=== PATIENT | female | born 1940 | race Hispanic/Latino ===

== ENCOUNTER 2017-12-25 11:33 | Inpatient (IN) | payer MEDICARE ==
[2017-12-25 13:27] LABS: BASO % 0.9 % (0.0-2.0); EOS # 0.2 K/uL (0.0-0.7); EOS % 3.6 % (0.0-4.0); HEMOGLOBIN 11.4 g/dL (12.0-16.0); LYMPH % 24.1 % (20.0-40.0); MEAN CELL VOLUME 89.3 fl (81.0-99.0); MEAN CORPUSCULAR HEMOGLOBIN 29.7 pg (27.0-31.0); MEAN CORPUSCULAR HGB CONC 33.3 g/dL (33.0-37.0); MEAN PLATELET VOLUME 7.2 fl (7.2-11.7); MONO # 0.4 K/uL (0.0-0.8); MONO % 9.1 % (0.0-10.0); NEUT # 2.6 K/uL (1.8-7.0); NEUT % 62.3 % (50.0-75.0); NRBC % 0.1 % (0.0-0.0); RBC 3.82 Mil/uL (3.80-5.20); RED CELL DISTRIBUTION WIDTH 14.2 % (11.5-14.5); WHITE BLOOD COUNT 4.2 K/uL (4.8-10.8)
[2017-12-25 13:28] LABS: VENOUS BLOOD GAS BASE EXCESS 1.4 mmol/L (0.0-2.0); VENOUS BLOOD GAS PCO2 63 mmHg (40-60); VENOUS BLOOD GAS PO2 25 mm/Hg (30-55); VENOUS BLOOD PH 7.28 (7.32-7.43)
[2017-12-25 13:34] LABS: INR 1.1; PROTHROMBIN TIME 12.1 Seconds (9.8-13.1)
[2017-12-25 13:37] LABS: PARTIAL THROMBOPLASTIN TIME 31.8 Seconds (25.6-37.1)
--- NOTE | 2017-12-25 14:03 | ED PDOC ---
HPI: Altered Mental Status Time Seen by Provider: 12/25/17 12:25 Chief Complaint (Nursing): Weakness/Neurological Deficit Chief Complaint (Provider): Altered Mental Status History Per: Family Onset/Duration Of Symptoms: Days (x2 weeks) Additional Complaint(s): Daphne Faulkner, a 77 year old with Alzheimer's and Dementia at baseline and Hepatitis C, presents to the emergency department accompanied by her and daughter for altered mental status worsening since onset of 2 weeks. Her and daughter report that the patient has had multiple falls in the past few weeks. Patient's daughter reports that 2-3 weeks ago she had a UTI that was thought to have been resolved. The patient's dose of seroquel was increased. 3 weeks ago patient experienced shortness of breath for which she followed up with a baseball inspector. Patient had MRI as an outpatient as per neurologist. Due to her worsening status and inability to walk, her family brought her here. No further medical complaints. Past Medical History Reviewed: Historical Data, Nursing Documentation, Vital Signs Vital Signs: Last Vital Signs Temp 99.0 F 12/25/17 11:37 Pulse 55 L 12/25/17 11:37 Resp 18 12/25/17 11:37 BP 131/70 12/25/17 11:37 Pulse Ox 98 12/25/17 11:37 - Medical History PMH: Alzheimer's Disease, Dementia, Hepatitis (C) - Family History Family History: States: Unknown Family Hx - Home Medications Home Medications: Ambulatory Orders Medication Instructions Recorded RX: Desvenlafaxine Succinate 50 mg PO DAILY 12/25/17 [Desvenlafaxine Succinate ER] RX: Levothyroxine [Synthroid] 75 mcg PO DAILY 12/25/17 RX: Lisinopril [Zestril] 10 mg PO DAILY 12/25/17 RX: QUEtiapine [SEROquel] 50 mg PO BID 12/25/17 RX: Acetaminophen [Tylenol 325mg 650 mg PO Q6 PRN tab 12/29/17 tab] RX: Docusate [Colace] 100 mg PO BID cap 12/29/17 RX: Enoxaparin [Lovenox] 40 mg SC DAILY syr 12/29/17 RX: LORazepam [Ativan] 0.5 mg PO DAILY tab 12/29/17 RX: clonazePAM [Klonopin] 0.5 mg PO BID tab 12/29/17 cefTRIAXone 1 gm [Rocephin 1 gram 1 gm IVPB DAILY #7 bag 12/29/17 IVPB] - Allergies Allergies/Adverse Reactions: Allergies Allergy/AdvReac Type Severity Reaction Status Date / Time cortisone Allergy RASH Verified 12/29/17 14:03 Penicillins Allergy RASH Verified 12/29/17 14:03 Review of Systems ROS Statement: Except As Marked, All Systems Reviewed And Found Negative Neurological: Positive for: Altered Mental Status Physical Exam - Reviewed Nursing Documentation Reviewed: Yes Vital Signs Reviewed: Yes - Physical Exam Appears: Positive for: Well, Non-toxic, No Acute Distress Head Exam: Positive for: ATRAUMATIC, NORMAL INSPECTION, NORMOCEPHALIC Skin: Positive for: Normal Color, Warm, DRY Eye Exam: Positive for: EOMI, Normal appearance, PERRL ENT: Positive for: Normal ENT Inspection Neck: Positive for: Normal, Painless ROM Cardiovascular/Chest: Positive for: Regular Rate, Rhythm Respiratory: Positive for: CNT, Normal Breath Sounds Gastrointestinal/Abdominal: Positive for: Tenderness (superpubuic tenderness) Back: Positive for: Normal Inspection Extremity: Positive for: Normal ROM Neurologic/Psych: Positive for: Alert (to name), cutter and paster press clippings II-XII (intact), Other ( can identify and daughter but not the president or year) - Laboratory Results Result Diagrams: 12/29/17 05:40 12/29/17 05:40 - ECG O2 Sat by Pulse Oximetry: 98 (RA) Pulse Ox Interpretation: Normal Medical Decision Making Medical Decision Making: Time: 12:25 Workup: AMS with brain CT, labs with ammonia, lithium levels, urine and blood cultures, most likely admission service TBD pending results Initial Plan: --Venous blood gas --Ct head w/o contrast --Ammonia --PIT CLERK --CMP --Lipase --[place] --Magnesium --Phosphorous --Troponin --CBC w/ differential --Partial thromboplastin time --Prothrombin time --Blood culture --Urine culture Patients urine presented high nitrate level and patient started on Levofloxacin 750mg. Symptoms may be due to underlying UTI. Spoke with Dr. Garber and patient will be admitted to observation. With a self score of 1, lactate is normal, vital signs are normal and lithium level is 1.6 which is therapeutic and not toxic. Scribe Attestation: Documented by Jocelyn Morley and Desean Bautista, acting as scribes for Sayda Yepez MD. Provider Scribe Attestation: All medical record entries made by the Scribe were at my direction and personally dictated by me. I have reviewed the chart and agree that the record accurately reflects my personal performance of the history, physical exam, medical decision making, and the department course for this patient. I have also personally directed, reviewed, and agree with the discharge instructions and disposition. Disposition - Clinical Impression Clinical Impression: UTI (urinary tract infection) - Patient ED Disposition Is Patient to be Admitted: Yes - Disposition Disposition Time: 17:51 Condition: GOOD
[2017-12-25 14:37] LABS: ALB/GLOB RATIO 0.9 (1.0-2.1); ALBUMIN 3.7 g/dL (3.5-5.0); ALT/SGPT 50 U/L (9-52); AST/SGOT 38 U/L (14-36); BLOOD UREA NITROGEN 16 mg/dl (7-17); CALCIUM 10.1 mg/dL (8.4-10.2); GFR NON-AFRICAN AMERICAN > 60; LIPASE 80 U/L (23-300)
[2017-12-25 14:45] LABS: B-TYPE NATRIURETIC PEPTIDE 55.3 pg/ml (0-900)
--- NOTE | 2017-12-25 15:38 | CT ---
Date of service: 12/25/2017 PROCEDURE: CT HEAD WITHOUT CONTRAST. HISTORY: AMS COMPARISON: None available. TECHNIQUE: Axial computed tomography images were obtained through the head/brain without intravenous contrast. Radiation dose: Total exam DLP = 881.67 mGy-cm. This CT exam was performed using one or more of the following dose reduction techniques: Automated exposure control, adjustment of the mA and/or kV according to patient size, and/or use of iterative reconstruction technique. FINDINGS: HEMORRHAGE: No intracranial hemorrhage. BRAIN: No mass effect or edema. Mild white matter changes likely represent chronic microvascular ischemic disease. There is low-attenuation extra-axial cyst to the left of the midline in the posterior aspect of the posterior fossa may represent arachnoid cyst. There are fairly symmetrical foci of dystrophic calcification in the basal ganglia bilaterally. VENTRICLES: Unremarkable. No hydrocephalus. CALVARIUM: Unremarkable. PARANASAL SINUSES: Unremarkable as visualized. No significant inflammatory changes. MASTOID AIR CELLS: Unremarkable as visualized. No inflammatory changes. OTHER FINDINGS: None. IMPRESSION: No evidence of acute intracranial hemorrhage mass effect or midline shift.
[2017-12-25 17:16] LABS: URINE BILIRUBIN NEGATIVE (NEGATIVE); URINE BLOOD NEGATIVE (NEGATIVE); URINE CLARITY SLIGHTY-CLOUDY (Clear); URINE COLOR YELLOW (YELLOW); URINE GLUCOSE (UA) NEG (Normal); URINE LEUKOCYTE ESTERASE SMALL Leu/uL (Negative); URINE PROTEIN NEGATIVE (NEGATIVE); URINE UROBILINOGEN 0.2-1.0 mg/dL (0.2-1.0)
[2017-12-25] MEDS ORDERED: levoFLOXacin 750 mg in D5W 150 ML BAG IVPB STA (17:48)
[2017-12-25] MEDS ORDERED: levoFLOXacin 750 mg in D5W 750 MG/150 ML BAG IVPB ONE (18:25)
--- NOTE | 2017-12-25 18:29 | CP.PCM.HP ---
Addendum entered and electronically signed by Chuy Carrasco MD 12/25/17 19:48: ALL: PCN/Cortisone: rash, no hx of other reactions Original Note: <Chuy Carrasco - Last Filed: 12/25/17 19:42> History of Present Illness - History of Present Illness History of Present Illness: CC: "she is more confused and acting differently" HPI: 77 y/o female with a PMHx of dementia, hep c, HTN, hypothyroidism, anxiety/depression presents for evaluation of altered mental status. and children at bedside report that for the past two weeks her cognitive function has declined from baseline. Family reports she can normally go to the bathroom and get dressed on her own but she has been unable to do so. She has also been having frequent falls due to gait instabilty, but no trauma or reported injury/LOC. Family is unsure of what may have been the triggering event, but do report she completed a 7 day course of abx just before symptoms started for a UTI. The patient does not endorse any complaints. Family denies any fever/chills, V/D, urinary symptoms, complaints of pain. ROS: limited secondary to pts cognitive status, as per HPI. PMD: [place] PMHx: Hep C, HTN, dementia, hypothyroid, anxiety/depression Meds: as per med rec, confirmed ALL: NKDA PsurgHx: cholecystectomy Social: no hx of tobacco, drug abuse, etoh. lives at home with , no chief controller FamilyHx: denies Present on Admission - Present on Admission Any Indicators Present on Admission: No History of DVT/PE: No History of Uncontrolled Diabetes: No Urinary Catheter: No Decubitus Ulcer Present: No Review of Systems - Review of Systems Systems not reviewed;Unavailable: Dementia Past Patient History - Past Medical History & Family History Past Medical History?: Yes - Past Social History Smoking Status: Never Smoked Alcohol: None Drugs: Denies Home Situation {Lives}: With Family - CARDIAC Hx Hypercholesterolemia: Yes Hx Hypertension: Yes - NEUROLOGICAL Hx Alzheimer's Disease: Yes Hx Dementia: Yes - ENDOCRINE/METABOLIC Hx Hypothyroidism: Yes - MUSCULOSKELETAL/RHEUMATOLOGICAL Hx Arthritis: Yes - GENITOURINARY/GYNECOLOGICAL Hx Incontinence: Yes - PSYCHIATRIC Hx Anxiety: Yes Hx Substance Use: No Meds Allergies/Adverse Reactions: Allergies Allergy/AdvReac Type Severity Reaction Status Date / Time cortisone Allergy RASH Verified 12/29/17 14:03 Penicillins Allergy RASH Verified 12/29/17 14:03 Physical Exam - Constitutional Appears: Non-toxic, No Acute Distress - Head Exam Head Exam: ATRAUMATIC, NORMOCEPHALIC - Eye Exam Eye Exam: EOMI. absent: Nystagmus, Scleral icterus Pupil Exam: PERRL - ENT Exam ENT Exam: Mucous Membranes Moist - Neck Exam Neck exam: Negative for: Lymphadenopathy - Respiratory Exam Respiratory Exam: Clear to Auscultation Bilateral, NORMAL BREATHING PATTERN. absent: Accessory Muscle Use, Rales, Rhonchi, Wheezes - Cardiovascular Exam Cardiovascular Exam: REGULAR RHYTHM, RRR, +S1, +S2. absent: Bradycardia, Tachycardia, JVD, Rubs, Systolic Murmur - GI/Abdominal Exam GI & Abdominal Exam: Normal Bowel Sounds, Soft. absent: Firm, Guarding, Rigid, Tenderness - Extremities Exam Extremities exam: Positive for: normal capillary refill, normal inspection, pedal pulses present. Negative for: pedal edema - Back Exam Back exam: NORMAL INSPECTION. absent: CVA tenderness (L), CVA tenderness (R) - Neurological Exam Neurological exam: Alert, CN II-XII Intact - Expanded Neurological Exam Expanded Cranial nerves: Tongue Deviation: Normal Upper motor neuron: Babinski Sign: Normal, Rivera Neglect: Normal, Pronator Drift: Normal Neuro motor strength exam: Left Upper Extremity: 4, Right Upper Extremity: 4, Left Lower Extremity: 4, Right Lower Extremity: 4 Coma Scale Eye Opening: SPONTANEOUS Coma Scale Motor Response: OBEYS COMMANDS - Skin Skin Exam: Dry, Intact, Warm Results - Vital Signs Recent Vital Signs: Last Vital Signs Temp 98.9 F 12/25/17 16:48 Pulse 62 12/25/17 16:48 Resp 18 12/25/17 16:48 BP 148/67 12/25/17 16:48 Pulse Ox 98 12/25/17 18:15 - Labs Result Diagrams: 12/25/17 13:15 12/25/17 14:08 Labs: Laboratory Results - last 24 hr 12/25/17 12/25/17 12/25/17 12:48 13:15 13:15 WBC 4.2 L RBC 3.82 Hgb 11.4 L Hct 34.1 MCV 89.3 MCH 29.7 MCHC 33.3 RDW 14.2 Plt Count 152 MPV 7.2 Neut % (Auto) 62.3 Lymph % (Auto) 24.1 [place] % (Auto) 9.1 Eos % (Auto) 3.6 Baso % (Auto) 0.9 Neut # (Auto) 2.6 Lymph # (Auto) 1.0 [place] # (Auto) 0.4 Eos # (Auto) 0.2 Baso # (Auto) 0.0 PT INR APTT pO2 25 L VBG pH 7.28 L VBG pCO2 63 H VBG HCO3 24.5 VBG Total CO2 31.5 H VBG O2 Sat (Calc) 38.5 L VBG Base Excess 1.4 VBG Potassium 4.2 Sodium 138.0 Chloride 108.0 H Glucose 110 H Lactate 1.1 FiO2 21.0 Potassium Carbon Dioxide Anion Gap BUN Creatinine Est GFR ( Amer) Est GFR (Non-Af Amer) Random Glucose Calcium Phosphorus Magnesium Total Bilirubin AST ALT Alkaline Phosphatase Ammonia 31 Troponin I NT-Pro-B Natriuret Pep Total Protein Albumin Globulin Albumin/Globulin Ratio Lipase Venous Blood Potassium 4.2 Urine Color Urine Clarity Urine pH Ur Specific [place] Urine Protein Urine Glucose (UA) Urine Ketones Urine Blood Urine Nitrate Urine Bilirubin Urine Urobilinogen Ur Leukocyte Esterase Urine RBC (Auto) Urine Microscopic WBC [place] 12/25/17 12/25/17 12/25/17 13:15 13:15 14:08 WBC RBC Hgb Hct MCV MCH MCHC RDW Plt Count MPV Neut % (Auto) Lymph % (Auto) [place] % (Auto) Eos % (Auto) Baso % (Auto) Neut # (Auto) Lymph # (Auto) [place] # (Auto) Eos # (Auto) Baso # (Auto) PT 12.1 INR 1.1 APTT 31.8 pO2 VBG pH VBG pCO2 VBG HCO3 VBG Total CO2 VBG O2 Sat (Calc) VBG Base Excess VBG Potassium Sodium 139 Chloride 110 H Glucose Lactate FiO2 Potassium 4.3 Carbon Dioxide 26 Anion Gap 7 L BUN 16 Creatinine 0.8 Est GFR ( Amer) > 60 Est GFR (Non-Af Amer) > 60 Random Glucose 107 H Calcium 10.1 Phosphorus 4.3 Magnesium 1.8 Total Bilirubin 0.6 AST 38 H ALT 50 Alkaline Phosphatase 70 Ammonia Troponin I < 0.0120 NT-Pro-B Natriuret Pep 55.3 Total Protein 7.7 Albumin 3.7 Globulin 4.0 H Albumin/Globulin Ratio 0.9 L Lipase 80 Venous Blood Potassium Urine Color Urine Clarity Urine pH Ur Specific [place] Urine Protein Urine Glucose (UA) Urine Ketones Urine Blood Urine Nitrate Urine Bilirubin Urine Urobilinogen Ur Leukocyte Esterase Urine RBC (Auto) Urine Microscopic WBC [place] 1.6 H 12/25/17 16:39 WBC RBC Hgb Hct MCV MCH MCHC RDW Plt Count MPV Neut % (Auto) Lymph % (Auto) [place] % (Auto) Eos % (Auto) Baso % (Auto) Neut # (Auto) Lymph # (Auto) [place] # (Auto) Eos # (Auto) Baso # (Auto) PT INR APTT pO2 VBG pH VBG pCO2 VBG HCO3 VBG Total CO2 VBG O2 Sat (Calc) VBG Base Excess VBG Potassium Sodium Chloride Glucose Lactate FiO2 Potassium Carbon Dioxide Anion Gap BUN Creatinine Est GFR ( Amer) Est GFR (Non-Af Amer) Random Glucose Calcium Phosphorus Magnesium Total Bilirubin AST ALT Alkaline Phosphatase Ammonia Troponin I NT-Pro-B Natriuret Pep Total Protein Albumin Globulin Albumin/Globulin Ratio Lipase Venous Blood Potassium Urine Color Yellow Urine Clarity Slighty-cloudy Urine pH 6.0 Ur Specific [place] 1.011 Urine Protein Negative Urine Glucose (UA) Neg Urine Ketones Negative Urine Blood Negative Urine Nitrate Positive H Urine Bilirubin Negative Urine Urobilinogen 0.2-1.0 Ur Leukocyte Esterase Small Urine RBC (Auto) 3 Urine Microscopic WBC 23 H [place] Assessment & Plan - Assessment and Plan (Free Text) Assessment: 77 y/o female with PMHx of HTN, Hypothyroid, anxiety/depression, RA, Hep C and dementia admitted for altered mental status and UTI. Plan: 1) Altered Mental Status -possibly 2/2 to polypharmacy or UTI -UA: large nitrates/elevated WBCs -Head CT: no acute hemorrhage or midline shift -CBC: wnl, no leukocytosis -CMP: unremarkable -VBG: lactate 1.1 -troponin: <0.0120 -EKG sinus bradycardia -Pro-BNP: 55 -Ammonia: 31 -lithium level: 1.6 -Urine Cx: pending -blood culture: pending -s/p 1 dose levaquin 750 -start rocephin 1gm QD -neurology consult -psych consult -PT/OT evaluation/tx 2) UTI: -afebrile -no leukocytosis -start rocephin 1gm QD -f/u blood/urine cx -0.45 NS @ 125mls/hr -repeat AM labs 3) HTN -stable -c/w lisinopril 10mg QD -monitor 4) Anxiety/Depression -resume home meds -psych consult 5) Prophylaxis -Lovenox 40mg SC QD 6) Diet -heart healthy/pureed 7) Code Status -full code <Miguel Garber D - Last Filed: 12/29/17 23:02> Results - Vital Signs Recent Vital Signs: Last Vital Signs Temp 97.6 F 12/29/17 08:14 Pulse 69 12/29/17 09:10 Resp 20 12/29/17 08:14 BP 159/79 H 12/29/17 09:10 Pulse Ox 95 12/29/17 08:14 - Labs Result Diagrams: 12/29/17 05:40 12/29/17 05:40 Labs: Laboratory Results - last 24 hr 12/29/17 12/29/17 12/29/17 05:40 05:40 05:41 WBC 4.2 L RBC 3.77 L Hgb 11.1 L Hct 33.2 L MCV 88.1 MCH 29.5 MCHC 33.5 RDW 14.1 Plt Count 164 Sodium 144 Potassium 4.3 Chloride 108 H Carbon Dioxide 28 Anion Gap 12 BUN 10 Creatinine 0.6 L Est GFR ( Amer) > 60 Est GFR (Non-Af Amer) > 60 POC Glucose (mg/dL) 89 Random Glucose 93 Calcium 10.0 Total Bilirubin 0.5 AST 33 ALT 48 Alkaline Phosphatase 67 Total Protein 7.5 Albumin 3.5 Globulin 3.9 Albumin/Globulin Ratio 0.9 L 12/29/17 11:06 WBC RBC Hgb Hct MCV MCH MCHC RDW Plt Count Sodium Potassium Chloride Carbon Dioxide Anion Gap BUN Creatinine Est GFR ( Amer) Est GFR (Non-Af Amer) POC Glucose (mg/dL) 119 H Random Glucose Calcium Total Bilirubin AST ALT Alkaline Phosphatase Total Protein Albumin Globulin Albumin/Globulin Ratio Attending/Attestation - Attestation I have personally seen and examined this patient.: Yes I have fully participated in the care of the patient.: Yes I have reviewed all pertinent clinical information: Yes
[2017-12-25] MEDS: Sodium Chloride 0.45% 1,000 ML IV SCH (19:11)
[2017-12-26] MEDS: Sodium Chloride 0.45% 1,000 ML IV SCH ×2 (03:00→17:04)
[2017-12-26] MEDS: Levothyroxine 75 MCG TAB PO SCH (06:04)
--- NOTE | 2017-12-26 08:11 | CARD ---
APPROVED REPORT Date of service: 12/25/2017 EKG Measurement Heart [id number] <Conclusion> Sinus bradycardia Otherwise normal ECG
[2017-12-26] MEDS: Enoxaparin 40 mg Syringe SC SCH (08:32)
[2017-12-26] MEDS: Naproxen 500 MG TAB PO SCH ×2 (08:33→22:41)
--- NOTE | 2017-12-26 09:40 | CP.PCM.CON ---
History of Present Illness - History of Present Illness History of Present Illness: Psychiatry consult note; History obtained from chart as patient is unable to engage in psychiatric interview CC: AMS HPI: 77 y/o female with a PMHx of dementia, hep c, HTN, hypothyroidism, anxiety/depression presents for evaluation of altered mental status. and children at bedside report that for the past two weeks her cognitive function has declined from baseline. Family reports she can normally go to the bathroom and get dressed on her own but she has been unable to do so. She has also been having frequent falls due to gait instabilty, but no trauma or reported injury/LOC. Family is unsure of what may have been the triggering event, but do report she completed a 7 day course of abx just before symptoms started for a UTI. The patient does not endorse any complaints. Family denies any fever/chills, V/D, urinary symptoms, complaints of pain. Patient speaks mainly [place] w/ conventional underwriter. She does not know where she currently is or the date or why she is in the hospital. She reports that she lives with her and has two children. She is not able to provide any medical or psychiatric history two conventional underwriter. She just states that she wants to leave, but can not state where she wants to go. PPHx: Unclear past psychiatric history PMD: [place] PMHx: Hep C, HTN, dementia, hypothyroid, anxiety/depression ALL: PCN, Cortisone PsurgHx: cholecystectomy Social: no hx of tobacco, drug abuse, etoh. 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 Recommendations: -Stop [place]; recheck Li levels; primary team should obtain additional collateral history about why this patient is being treated with [place] -Recommend neurology consult -Taper and stop benzodiazepines as they are likely worsening mental status and increase risk of falls Past Patient History - Past Medical History & Family History Past Medical History?: Yes - Past Social History Smoking Status: Never Smoked - CARDIAC Hx Cardiac Disorders: Yes Hx Hypercholesterolemia: Yes Hx Hypertension: Yes - PULMONARY Hx Respiratory Disorders: No - NEUROLOGICAL Hx Neurological Disorder: Yes Hx Alzheimer's Disease: Yes Hx Dementia: Yes - HEENT Hx HEENT Problems: Yes Other/Comment: Wears eyeglasses - RENAL Hx Chronic Kidney Disease: No - ENDOCRINE/METABOLIC Hx Endocrine Disorders: Yes Hx Hypothyroidism: Yes - HEMATOLOGICAL/ONCOLOGICAL Hx Blood Disorders: No - INTEGUMENTARY Hx Dermatological Problems: No - MUSCULOSKELETAL/RHEUMATOLOGICAL Hx Musculoskeletal Disorders: Yes Hx Arthritis: Yes Hx Falls: Yes - GASTROINTESTINAL Hx Gastrointestinal Disorders: No - GENITOURINARY/GYNECOLOGICAL Hx Genitourinary Disorders: Yes Hx Incontinence: Yes - PSYCHIATRIC Hx Psychophysiologic Disorder: Yes Hx Anxiety: Yes Hx Substance Use: No - SURGICAL HISTORY Hx Surgeries: Yes Hx Cholecystectomy: Yes - ANESTHESIA Hx Anesthesia: Yes Hx Anesthesia Reactions: No Meds Allergies/Adverse Reactions: Allergies Allergy/AdvReac Type Severity Reaction Status Date / Time cortisone Allergy RASH Verified 12/25/17 11:36 Penicillins Allergy RASH Verified 12/25/17 11:36 - Medications Medications: Current Medications Clonazepam (Klonopin) 0.5 mg PO BID PRN PRN Reason: Anxiety Last Admin: 12/25/17 22:07 Dose: 0.5 mg Enoxaparin Sodium (Lovenox) 40 mg SC DAILY [facility]; Protocol Last Admin: 12/26/17 08:32 Dose: 40 mg Home Med (Desvenlafaxine Succinate [Desvenlafaxine Succinate Er]) 50 mg PO DAILY [facility] Sodium Chloride (Sodium Chloride 0.45%) 1,000 mls @ 125 mls/hr IV .Q8H [facility] Stop: 12/26/17 18:34 Last Admin: 12/26/17 03:00 Dose: Not Given Ceftriaxone Sodium 1 gm/ (Sodium Chloride) 100 mls @ 100 mls/hr IVPB DAILY [facility]; Protocol Last Admin: 12/26/17 08:37 Dose: 100 mls/hr Levothyroxine Sodium (Synthroid) 75 mcg PO DAILY@0630 [facility] Last Admin: 12/26/17 06:04 Dose: 75 mcg Lisinopril (Zestril) 10 mg PO DAILY [facility] Last Admin: 12/26/17 08:34 Dose: 10 mg [place] Carbonate ([place] Carbonate 300mg) 400 mg PO DAILY [facility] Lorazepam (Ativan) 1 mg PO DAILY [facility] Last Admin: 12/26/17 08:32 Dose: 1 mg Naproxen (Naproxen) 500 mg PO Q12 [facility] Last Admin: 12/26/17 08:33 Dose: 500 mg Quetiapine Fumarate (Seroquel) 50 mg PO BID [facility] Last Admin: 12/26/17 08:34 Dose: 50 mg Results - Vital Signs Recent Vital Signs: Last Vital Signs Temp 98.3 F 12/26/17 09:12 Pulse 65 12/26/17 09:12 Resp 19 12/26/17 09:12 BP 177/86 H 12/26/17 09:12 Pulse Ox 96 12/26/17 09:12 - Labs Result Diagrams: 12/25/17 13:15 12/25/17 14:08 Labs: Laboratory Results - last 24 hr 12/25/17 12/25/17 12/25/17 12:48 13:15 13:15 WBC 4.2 L RBC 3.82 Hgb 11.4 L Hct 34.1 MCV 89.3 MCH 29.7 MCHC 33.3 RDW 14.2 Plt Count 152 MPV 7.2 Neut % (Auto) 62.3 Lymph % (Auto) 24.1 [place] % (Auto) 9.1 Eos % (Auto) 3.6 Baso % (Auto) 0.9 Neut # (Auto) 2.6 Lymph # (Auto) 1.0 [place] # (Auto) 0.4 Eos # (Auto) 0.2 Baso # (Auto) 0.0 PT INR APTT pO2 25 L VBG pH 7.28 L VBG pCO2 63 H VBG HCO3 24.5 VBG Total CO2 31.5 H VBG O2 Sat (Calc) 38.5 L VBG Base Excess 1.4 VBG Potassium 4.2 Sodium 138.0 Chloride 108.0 H Glucose 110 H Lactate 1.1 FiO2 21.0 Potassium Carbon Dioxide Anion Gap BUN Creatinine Est GFR ( Amer) Est GFR (Non-Af Amer) Random Glucose Calcium Phosphorus Magnesium Total Bilirubin AST ALT Alkaline Phosphatase Ammonia 31 Troponin I NT-Pro-B Natriuret Pep Total Protein Albumin Globulin Albumin/Globulin Ratio Lipase Venous Blood Potassium 4.2 Urine Color Urine Clarity Urine pH Ur Specific [place] Urine Protein Urine Glucose (UA) Urine Ketones Urine Blood Urine Nitrate Urine Bilirubin Urine Urobilinogen Ur Leukocyte Esterase Urine RBC (Auto) Urine Microscopic WBC [place] 12/25/17 12/25/17 12/25/17 13:15 13:15 14:08 WBC RBC Hgb Hct MCV MCH MCHC RDW Plt Count MPV Neut % (Auto) Lymph % (Auto) [place] % (Auto) Eos % (Auto) Baso % (Auto) Neut # (Auto) Lymph # (Auto) [place] # (Auto) Eos # (Auto) Baso # (Auto) PT 12.1 INR 1.1 APTT 31.8 pO2 VBG pH VBG pCO2 VBG HCO3 VBG Total CO2 VBG O2 Sat (Calc) VBG Base Excess VBG Potassium Sodium 139 Chloride 110 H Glucose Lactate FiO2 Potassium 4.3 Carbon Dioxide 26 Anion Gap 7 L BUN 16 Creatinine 0.8 Est GFR ( Amer) > 60 Est GFR (Non-Af Amer) > 60 Random Glucose 107 H Calcium 10.1 Phosphorus 4.3 Magnesium 1.8 Total Bilirubin 0.6 AST 38 H ALT 50 Alkaline Phosphatase 70 Ammonia Troponin I < 0.0120 NT-Pro-B Natriuret Pep 55.3 Total Protein 7.7 Albumin 3.7 Globulin 4.0 H Albumin/Globulin Ratio 0.9 L Lipase 80 Venous Blood Potassium Urine Color Urine Clarity Urine pH Ur Specific [place] Urine Protein Urine Glucose (UA) Urine Ketones Urine Blood Urine Nitrate Urine Bilirubin Urine Urobilinogen Ur Leukocyte Esterase Urine RBC (Auto) Urine Microscopic WBC [place] 1.6 H 12/25/17 16:39 WBC RBC Hgb Hct MCV MCH MCHC RDW Plt Count MPV Neut % (Auto) Lymph % (Auto) [place] % (Auto) Eos % (Auto) Baso % (Auto) Neut # (Auto) Lymph # (Auto) [place] # (Auto) Eos # (Auto) Baso # (Auto) PT INR APTT pO2 VBG pH VBG pCO2 VBG HCO3 VBG Total CO2 VBG O2 Sat (Calc) VBG Base Excess VBG Potassium Sodium Chloride Glucose Lactate FiO2 Potassium Carbon Dioxide Anion Gap BUN Creatinine Est GFR ( Amer) Est GFR (Non-Af Amer) Random Glucose Calcium Phosphorus Magnesium Total Bilirubin AST ALT Alkaline Phosphatase Ammonia Troponin I NT-Pro-B Natriuret Pep Total Protein Albumin Globulin Albumin/Globulin Ratio Lipase Venous Blood Potassium Urine Color Yellow Urine Clarity Slighty-cloudy Urine pH 6.0 Ur Specific [place] 1.011 Urine Protein Negative Urine Glucose (UA) Neg Urine Ketones Negative Urine Blood Negative Urine Nitrate Positive H Urine Bilirubin Negative Urine Urobilinogen 0.2-1.0 Ur Leukocyte Esterase Small Urine RBC (Auto) 3 Urine Microscopic WBC 23 H [place]
--- NOTE | 2017-12-26 10:52 | RAD ---
Date of service: 12/26/2017 PROCEDURE: BILATERAL HIPS WITH PELVIS RADIOGRAPHS HISTORY: falls COMPARISON: None available. TECHNIQUE: Frontal views of the pelvis and bilateral hip joints been submitted with bilateral frog-leg lateral projections of the bilateral hip joints. FINDINGS: No fracture or dislocation is identified affecting either left or right hip joints with degenerative sclerosis appreciate the weight-bearing portion of both joints compatible with moderate osteoarthritis. In addition, the pelvic ring appears intact throughout without fracture. Pubic symphysis is intact swells remaining pubic bony anatomy. Degenerative changes are moderate at the bilateral sacroiliac joints with advanced degenerative changes at the visualized lumbar spine diffusely. 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 No destructive bony lesions are appreciated throughout the exam. Diffuse osteopenia suggests osteoporosis. IMPRESSION: No acute fracture dislocation degenerative changes appear moderate the bilateral hip and sacroiliac joints with the pelvic ring intact including pubic symphysis.
--- NOTE | 2017-12-26 11:43 | CP.PCM.PN ---
Addendum entered by Luz Maria Jimenez MD 12/26/17 20:39: Surrogate Decision maker - daughter Angelica Original Note: <David Peña - Last Filed: 12/26/17 14:22> Subjective - Date & Time of Evaluation Date of Evaluation: 12/26/17 Time of Evaluation: 11:41 - Subjective Subjective: 77 y/o female with a PMHx of dementia, Hep C, HTN, hypothyroidism, anxiety/depression was seen and evaluated at bedside admitted for altered mental status and UTI. Patient's and son at bedside report that for the past two weeks her cognitive function has declined from baseline. As per family, patient has also been having frequent falls due to gait instabilty, but no trauma or reported injury/LOC. Patient unable to answer questions due to altered mental status. As per nursing and family, no overnight events noted. Patient able to follow commands during physical exam, however patient is not oriented to time or place Objective - Vital Signs/Intake and Output Vital Signs (last 24 hours): Temp Pulse Resp BP Pulse Ox 98.3 F 65 19 177/86 H 96 12/26/17 09:12 12/26/17 09:12 12/26/17 09:12 12/26/17 09:12 12/26/17 09:12 Intake and Output: 12/26/17 12/26/17 06:59 18:59 Output Total 900 Balance -900 - Medications Medications: Current Medications Clonazepam (Klonopin) 0.2 mg PO BID PRN PRN Reason: Anxiety Enoxaparin Sodium (Lovenox) 40 mg SC DAILY [facility]; Protocol Last Admin: 12/26/17 08:32 Dose: 40 mg Home Med (Desvenlafaxine Succinate [Desvenlafaxine Succinate Er]) 50 mg PO DAILY [facility] Sodium Chloride (Sodium Chloride 0.45%) 1,000 mls @ 125 mls/hr IV .Q8H [facility] Stop: 12/26/17 18:34 Last Admin: 12/26/17 03:00 Dose: Not Given Ceftriaxone Sodium 1 gm/ (Sodium Chloride) 100 mls @ 100 mls/hr IVPB DAILY [facility]; Protocol Last Admin: 12/26/17 08:37 Dose: 100 mls/hr Levothyroxine Sodium (Synthroid) 75 mcg PO DAILY@0630 [facility] Last Admin: 12/26/17 06:04 Dose: 75 mcg Lisinopril (Zestril) 10 mg PO DAILY [facility] Last Admin: 12/26/17 08:34 Dose: 10 mg [place] Carbonate ([place] Carbonate 300mg) 400 mg PO DAILY [facility] Lorazepam (Ativan) 0.5 mg PO DAILY [facility] Naproxen (Naproxen) 500 mg PO Q12 [facility] Last Admin: 12/26/17 08:33 Dose: 500 mg Quetiapine Fumarate (Seroquel) 50 mg PO BID [facility] Last Admin: 12/26/17 08:34 Dose: 50 mg - Labs Labs: 12/25/17 13:15 12/25/17 14:08 PT 12.1 Seconds (9.8-13.1) 12/25/17 13:15 INR 1.1 12/25/17 13:15 APTT 31.8 Seconds (25.6-37.1) 12/25/17 13:15 - Constitutional Appears: Non-toxic, No Acute Distress - Head Exam Head Exam: ATRAUMATIC, NORMOCEPHALIC - Eye Exam Eye Exam: absent: Nystagmus, Scleral icterus Pupil Exam: PERRL - ENT Exam ENT Exam: Mucous Membranes Moist, Normal Exam - Neck Exam Neck Exam: absent: Lymphadenopathy - Respiratory Exam Respiratory Exam: Clear to Ausculation Bilateral, NORMAL BREATHING PATTERN. absent: Rales, Rhonchi, Wheezes - Cardiovascular Exam Cardiovascular Exam: REGULAR RHYTHM, JVD, Rubs, +S1, +S2. absent: Bradycardia, Tachycardia, Murmur - GI/Abdominal Exam GI & Abdominal Exam: Soft, Normal Bowel Sounds. absent: Firm, Guarding, Rigid, Tenderness - Extremities Exam Extremities Exam: Normal Inspection. absent: Pedal Edema - Neurological Exam Neurological Exam: Alert, CN II-XII Intact Neuro motor strength exam: Left Upper Extremity: 3, Right Upper Extremity: 4, Left Lower Extremity: 4, Right Lower Extremity: 4 Additional comments: Upper motor neuron: Babinski Sign: Normal, Rivera Neglect: Normal, Pronator Drift: Normal Coma Scale Motor Response: OBEYS COMMANDS - Psychiatric Exam Psychiatric exam: Normal Mood - Skin Skin Exam: Normal Color Assessment and Plan - Assessment and Plan (Free Text) Assessment: 77 y/o female with PMHx of HTN, Hypothyroid, anxiety/depression, RA, Hep C and dementia admitted for altered mental status and UTI. Plan: 1) Altered Mental Status likely due to UTI vs. [place] toxicity -UA: large nitrates/elevated WBCs -Head CT: no acute hemorrhage or midline shift -EKG: Sinus bradycardia -Urine Cx/Blood Cx: Pending -Continue Rocephin 1gm QD -Psych consult- As per Dr. Saxena, recheck [place] levels, taper and stop benzodiazepines as they are likely worsening mental status and increase risk of falls -Pending Physical Therapy evaluation -Hip/Pelvis X-ray: no fracture or dislocations, degenerative changes noted 2) Urinary Tract Infection -afebrile -no leukocytosis -Continue rocephin 1gm QD -Urine Cx: Gram negative rods, pending final result -Blood Cx: Pending 3) [place] Toxicity -[place] level: 1.6 -Neurology consult-As per Dr. Winston, Likely due to a combination of medication effects and infection. Please treat the underlying cause and re-consult if there are concerns for a primary AIRPORT ENGINEER cause of encephalopathy -Psych consult- As per Dr. Saxena, recheck [place] levels, taper and stop benzodiazepines as they are likely worsening mental status and increase risk of falls -F/U [place] Levels -F/U TSH Levels 3) HTN -stable -c/w lisinopril 10mg QD -monitor 4) Anxiety/Depression - Taper dose of Clonazepam (0.2 mg PO BID PRN) and Lorazepam (0.5 mg PO DAILY) 5) Prophylaxis -Lovenox 40mg SC QD <Luz Maria Jimenez - Last Filed: 12/26/17 16:26> Objective - Vital Signs/Intake and Output Vital Signs (last 24 hours): Temp Pulse Resp BP Pulse Ox 98.3 F 78 19 177/86 H 95 12/26/17 09:12 12/26/17 14:40 12/26/17 09:12 12/26/17 09:12 12/26/17 14:40 Intake and Output: 12/26/17 12/26/17 06:59 18:59 Output Total 900 Balance -900 - Medications Medications: Current Medications Clonazepam (Klonopin) 0.2 mg PO BID PRN PRN Reason: Anxiety Enoxaparin Sodium (Lovenox) 40 mg SC DAILY [facility]; Protocol Last Admin: 12/26/17 08:32 Dose: 40 mg Home Med (Desvenlafaxine Succinate [Desvenlafaxine Succinate Er]) 50 mg PO DAILY [facility] Sodium Chloride (Sodium Chloride 0.45%) 1,000 mls @ 125 mls/hr IV .Q8H [facility] Stop: 12/26/17 18:34 Last Admin: 12/26/17 03:00 Dose: Not Given Ceftriaxone Sodium 1 gm/ (Sodium Chloride) 100 mls @ 100 mls/hr IVPB DAILY [facility]; Protocol Last Admin: 12/26/17 08:37 Dose: 100 mls/hr Levothyroxine Sodium (Synthroid) 75 mcg PO DAILY@0630 [facility] Last Admin: 12/26/17 06:04 Dose: 75 mcg Lisinopril (Zestril) 10 mg PO DAILY [facility] Last Admin: 12/26/17 08:34 Dose: 10 mg Lorazepam (Ativan) 0.5 mg PO DAILY [facility] Naproxen (Naproxen) 500 mg PO Q12 [facility] Last Admin: 12/26/17 08:33 Dose: 500 mg Quetiapine Fumarate (Seroquel) 50 mg PO BID [facility] Last Admin: 12/26/17 08:34 Dose: 50 mg - Labs Labs: 12/25/17 13:15 12/25/17 14:08 PT 12.1 Seconds (9.8-13.1) 12/25/17 13:15 INR 1.1 12/25/17 13:15 APTT 31.8 Seconds (25.6-37.1) 12/25/17 13:15 Attending/Attestation - Attestation I have personally seen and examined this patient.: Yes I have fully participated in the care of the patient.: Yes I have reviewed all pertinent clinical information, including history, physical exam and plan: Yes Notes (Text): Will admit pt for IV antibiotic treatment of UTI ( failed outpt tx) , further monitoring due to [place] toxicity, IVF hydration UTI, recurrent, failed outpatient treatment - cont IV ceftriaxomne - Urine c/s : Gram negative rods ,await sensitivity Acute Mental Status change , worsening of baseline Alzheimer's Dementia likely worsened by Infection and [place] Toxicity [place] Toxicity - d/c [place] - IVF hydration - Psych consulted' Frequent Fall ? secondary to [place] Toxicity and polypharmacy - PT consulted- rec EARNESTINE -Neurology consulted - Hip/Pelvic Xray - no fracture - CT of head : no bleed, no fracture
--- NOTE | 2017-12-26 12:40 | CP.PCM.CON ---
History of Present Illness - History of Present Illness History of Present Illness: Neurology Consultation Note: Mrs. Faulkner is a 77-year-old woman with a past medical history of dementia, hep c, HTN, hypothyroidism, anxiety/depression presents for evaluation of altered mental status. She was recently started on treatment for UTI that appears to still be present based on labs. Furthermore, she was found to be toxic on lithium. 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 Review of Systems - Review of Systems Systems not reviewed;Unavailable: Altered Mental Status Past Patient History - Past Medical History & Family History Past Medical History?: Yes - Past Social History Smoking Status: Never Smoked - CARDIAC Hx Cardiac Disorders: Yes Hx Hypercholesterolemia: Yes Hx Hypertension: Yes - PULMONARY Hx Respiratory Disorders: No - NEUROLOGICAL Hx Neurological Disorder: Yes Hx Alzheimer's Disease: Yes Hx Dementia: Yes - HEENT Hx HEENT Problems: Yes Other/Comment: Wears eyeglasses - RENAL Hx Chronic Kidney Disease: No - ENDOCRINE/METABOLIC Hx Endocrine Disorders: Yes Hx Hypothyroidism: Yes - HEMATOLOGICAL/ONCOLOGICAL Hx Blood Disorders: No - INTEGUMENTARY Hx Dermatological Problems: No - MUSCULOSKELETAL/RHEUMATOLOGICAL Hx Musculoskeletal Disorders: Yes Hx Arthritis: Yes Hx Falls: Yes - GASTROINTESTINAL Hx Gastrointestinal Disorders: No - GENITOURINARY/GYNECOLOGICAL Hx Genitourinary Disorders: Yes Hx Incontinence: Yes - PSYCHIATRIC Hx Psychophysiologic Disorder: Yes Hx Anxiety: Yes Hx Substance Use: No - SURGICAL HISTORY Hx Surgeries: Yes Hx Cholecystectomy: Yes - ANESTHESIA Hx Anesthesia: Yes Hx Anesthesia Reactions: No Meds Allergies/Adverse Reactions: Allergies Allergy/AdvReac Type Severity Reaction Status Date / Time cortisone Allergy RASH Verified 12/25/17 11:36 Penicillins Allergy RASH Verified 12/25/17 11:36 - Medications Medications: Current Medications Clonazepam (Klonopin) 0.2 mg PO BID PRN PRN Reason: Anxiety Enoxaparin Sodium (Lovenox) 40 mg SC DAILY [facility]; Protocol Last Admin: 12/26/17 08:32 Dose: 40 mg Home Med (Desvenlafaxine Succinate [Desvenlafaxine Succinate Er]) 50 mg PO DAILY [facility] Sodium Chloride (Sodium Chloride 0.45%) 1,000 mls @ 125 mls/hr IV .Q8H [facility] Stop: 12/26/17 18:34 Last Admin: 12/26/17 03:00 Dose: Not Given Ceftriaxone Sodium 1 gm/ (Sodium Chloride) 100 mls @ 100 mls/hr IVPB DAILY [facility]; Protocol Last Admin: 12/26/17 08:37 Dose: 100 mls/hr Levothyroxine Sodium (Synthroid) 75 mcg PO DAILY@0630 [facility] Last Admin: 12/26/17 06:04 Dose: 75 mcg Lisinopril (Zestril) 10 mg PO DAILY [facility] Last Admin: 12/26/17 08:34 Dose: 10 mg Lorimor Carbonate (Lorimor Carbonate 300mg) 400 mg PO DAILY [facility] Lorazepam (Ativan) 0.5 mg PO DAILY [facility] Naproxen (Naproxen) 500 mg PO Q12 [facility] Last Admin: 12/26/17 08:33 Dose: 500 mg Quetiapine Fumarate (Seroquel) 50 mg PO BID [facility] Last Admin: 12/26/17 08:34 Dose: 50 mg Physical Exam - Constitutional Appears: Well - Head Exam Head Exam: ATRAUMATIC, NORMAL INSPECTION, NORMOCEPHALIC - Eye Exam Eye Exam: EOMI, Normal appearance, PERRL - ENT Exam ENT Exam: Mucous Membranes Moist, Normal Exam - Neck Exam Neck exam: Positive for: Normal Inspection - Respiratory Exam Respiratory Exam: Clear to Auscultation Bilateral, NORMAL BREATHING PATTERN - Cardiovascular Exam Cardiovascular Exam: REGULAR RHYTHM, +S1, +S2 - GI/Abdominal Exam GI & Abdominal Exam: Normal Bowel Sounds, Soft. absent: Tenderness - Rectal Exam Rectal Exam: Deferred - Neurological Exam Neurological exam: Abnormal Gait, Alert, Altered, CN II-XII Intact, Reflexes Normal Additional comments: Dementia, confusion, poor attention span, dependent. Follows commands and does not have any focal weakness. She is bradykinetic. Sensation is intact. Reflexes are brisk. - Psychiatric Exam Psychiatric exam: Normal Affect, Normal Mood - Skin Skin Exam: Dry, Intact, Normal Color, Warm Results - Vital Signs Recent Vital Signs: Last Vital Signs Temp 98.3 F 12/26/17 09:12 Pulse 65 12/26/17 09:12 Resp 19 12/26/17 09:12 BP 177/86 H 12/26/17 09:12 Pulse Ox 96 12/26/17 09:12 - Labs Result Diagrams: 12/25/17 13:15 12/25/17 14:08 Labs: Laboratory Results - last 24 hr 12/25/17 12/25/17 12/25/17 12:48 13:15 13:15 WBC 4.2 L RBC 3.82 Hgb 11.4 L Hct 34.1 MCV 89.3 MCH 29.7 MCHC 33.3 RDW 14.2 Plt Count 152 MPV 7.2 Neut % (Auto) 62.3 Lymph % (Auto) 24.1 [place] % (Auto) 9.1 Eos % (Auto) 3.6 Baso % (Auto) 0.9 Neut # (Auto) 2.6 Lymph # (Auto) 1.0 [place] # (Auto) 0.4 Eos # (Auto) 0.2 Baso # (Auto) 0.0 PT INR APTT pO2 25 L VBG pH 7.28 L VBG pCO2 63 H VBG HCO3 24.5 VBG Total CO2 31.5 H VBG O2 Sat (Calc) 38.5 L VBG Base Excess 1.4 VBG Potassium 4.2 Sodium 138.0 Chloride 108.0 H Glucose 110 H Lactate 1.1 FiO2 21.0 Potassium Carbon Dioxide Anion Gap BUN Creatinine Est GFR ( Amer) Est GFR (Non-Af Amer) Random Glucose Calcium Phosphorus Magnesium Total Bilirubin AST ALT Alkaline Phosphatase Ammonia 31 Troponin I NT-Pro-B Natriuret Pep Total Protein Albumin Globulin Albumin/Globulin Ratio Lipase Venous Blood Potassium 4.2 Urine Color Urine Clarity Urine pH Ur Specific [place] Urine Protein Urine Glucose (UA) Urine Ketones Urine Blood Urine Nitrate Urine Bilirubin Urine Urobilinogen Ur Leukocyte Esterase Urine RBC (Auto) Urine Microscopic WBC Lorimor 12/25/17 12/25/17 12/25/17 13:15 13:15 14:08 WBC RBC Hgb Hct MCV MCH MCHC RDW Plt Count MPV Neut % (Auto) Lymph % (Auto) [place] % (Auto) Eos % (Auto) Baso % (Auto) Neut # (Auto) Lymph # (Auto) [place] # (Auto) Eos # (Auto) Baso # (Auto) PT 12.1 INR 1.1 APTT 31.8 pO2 VBG pH VBG pCO2 VBG HCO3 VBG Total CO2 VBG O2 Sat (Calc) VBG Base Excess VBG Potassium Sodium 139 Chloride 110 H Glucose Lactate FiO2 Potassium 4.3 Carbon Dioxide 26 Anion Gap 7 L BUN 16 Creatinine 0.8 Est GFR ( Amer) > 60 Est GFR (Non-Af Amer) > 60 Random Glucose 107 H Calcium 10.1 Phosphorus 4.3 Magnesium 1.8 Total Bilirubin 0.6 AST 38 H ALT 50 Alkaline Phosphatase 70 Ammonia Troponin I < 0.0120 NT-Pro-B Natriuret Pep 55.3 Total Protein 7.7 Albumin 3.7 Globulin 4.0 H Albumin/Globulin Ratio 0.9 L Lipase 80 Venous Blood Potassium Urine Color Urine Clarity Urine pH Ur Specific [place] Urine Protein Urine Glucose (UA) Urine Ketones Urine Blood Urine Nitrate Urine Bilirubin Urine Urobilinogen Ur Leukocyte Esterase Urine RBC (Auto) Urine Microscopic WBC Lorimor 1.6 H 12/25/17 16:39 WBC RBC Hgb Hct MCV MCH MCHC RDW Plt Count MPV Neut % (Auto) Lymph % (Auto) [place] % (Auto) Eos % (Auto) Baso % (Auto) Neut # (Auto) Lymph # (Auto) [place] # (Auto) Eos # (Auto) Baso # (Auto) PT INR APTT pO2 VBG pH VBG pCO2 VBG HCO3 VBG Total CO2 VBG O2 Sat (Calc) VBG Base Excess VBG Potassium Sodium Chloride Glucose Lactate FiO2 Potassium Carbon Dioxide Anion Gap BUN Creatinine Est GFR ( Amer) Est GFR (Non-Af Amer) Random Glucose Calcium Phosphorus Magnesium Total Bilirubin AST ALT Alkaline Phosphatase Ammonia Troponin I NT-Pro-B Natriuret Pep Total Protein Albumin Globulin Albumin/Globulin Ratio Lipase Venous Blood Potassium Urine Color Yellow Urine Clarity Slighty-cloudy Urine pH 6.0 Ur Specific [place] 1.011 Urine Protein Negative Urine Glucose (UA) Neg Urine Ketones Negative Urine Blood Negative Urine Nitrate Positive H Urine Bilirubin Negative Urine Urobilinogen 0.2-1.0 Ur Leukocyte Esterase Small Urine RBC (Auto) 3 Urine Microscopic WBC 23 H Lorimor Assessment & Plan (1) Toxic metabolic encephalopathy Assessment and Plan: Likely due to a combination of medication effects and infection. Please treat the underlying cause and re-consult if there are concerns for a primary [place] cause of encephalopathy. Aricept may be started for dementia at 5 mg daily. Follow up with Dr. Gonsalez. Thank you for this consultation. Status: Acute
[2017-12-26] MEDS: DESVENLAFAXINE SUCCINATE 50 MG PO SCH (17:01)
[2017-12-26 17:09] LABS: HEMOGLOBIN 11.1 g/dL (12.0-16.0); MEAN CELL VOLUME 88.8 fl (81.0-99.0); MEAN CORPUSCULAR HEMOGLOBIN 29.9 pg (27.0-31.0); MEAN CORPUSCULAR HGB CONC 33.7 g/dL (33.0-37.0); RBC 3.72 Mil/uL (3.80-5.20); RED CELL DISTRIBUTION WIDTH 13.9 % (11.5-14.5); WHITE BLOOD COUNT 4.6 K/uL (4.8-10.8)
[2017-12-26 17:44] LABS: ALB/GLOB RATIO 0.9 (1.0-2.1); ALBUMIN 3.6 g/dL (3.5-5.0); ALT/SGPT 38 U/L (9-52); AST/SGOT 30 U/L (14-36); BLOOD UREA NITROGEN 10 mg/dl (7-17); GFR NON-AFRICAN AMERICAN > 60
[2017-12-27 06:05] LABS: BASO % 0.5 % (0.0-2.0); EOS # 0.1 K/uL (0.0-0.7); EOS % 2.7 % (0.0-4.0); HEMOGLOBIN 10.9 g/dL (12.0-16.0); LYMPH # 1.3 K/uL (1.0-4.3); LYMPH % 27.9 % (20.0-40.0); MEAN CELL VOLUME 88.7 fl (81.0-99.0); MEAN CORPUSCULAR HGB CONC 33.8 g/dL (33.0-37.0); MEAN PLATELET VOLUME 6.6 fl (7.2-11.7); MONO # 0.5 K/uL (0.0-0.8); MONO % 9.9 % (0.0-10.0); NEUT # 2.7 K/uL (1.8-7.0); RBC 3.64 Mil/uL (3.80-5.20); RED CELL DISTRIBUTION WIDTH 13.8 % (11.5-14.5); WHITE BLOOD COUNT 4.6 K/uL (4.8-10.8)
[2017-12-27 06:07] LABS: ALB/GLOB RATIO 0.9 (1.0-2.1); ALBUMIN 3.6 g/dL (3.5-5.0); ALT/SGPT 37 U/L (9-52); AST/SGOT 31 U/L (14-36); BLOOD UREA NITROGEN 9 mg/dl (7-17); CALCIUM 10.2 mg/dL (8.4-10.2); GFR NON-AFRICAN AMERICAN > 60
[2017-12-27] MEDS: Levothyroxine 75 MCG TAB PO SCH (07:15)
[2017-12-27] MEDS: Naproxen 500 MG TAB PO SCH ×2 (09:26→20:51)
[2017-12-27] MEDS: Enoxaparin 40 mg Syringe SC SCH (09:26)
[2017-12-27] MEDS: DESVENLAFAXINE SUCCINATE 50 MG PO SCH (09:27)
--- NOTE | 2017-12-27 09:31 | CP.PCM.PN ---
Addendum entered and electronically signed by David Peña DPM 12/27/17 11:09: Patient's Benzodiazepine Clonazepam will be slowly tapered Original Note: <David Peña - Last Filed: 12/27/17 10:28> Subjective - Date & Time of Evaluation Date of Evaluation: 12/27/17 Time of Evaluation: 09:01 - Subjective Subjective: 77 y/o female was seen and evaluated at bedside with one-to-one observation. Patient was agitated overnight and is confused during evaluation at this time. Patient is not orientated to time or place. Patient is asking for family. Patient denies any pain at this time. Objective - Vital Signs/Intake and Output Vital Signs (last 24 hours): Temp Pulse Resp BP Pulse Ox 97.6 F 95 H 20 179/75 H 96 12/27/17 08:30 12/27/17 08:30 12/27/17 08:30 12/27/17 08:30 12/27/17 08:30 Intake and Output: 12/27/17 12/27/17 06:59 18:59 Intake Total 1450 Output Total 500 Balance 950 - Medications Medications: Current Medications Clonazepam (Klonopin) 0.5 mg PO BID PRN PRN Reason: Anxiety Last Admin: 12/27/17 00:20 Dose: 0.5 mg Enoxaparin Sodium (Lovenox) 40 mg SC DAILY [facility]; Protocol Last Admin: 12/26/17 08:32 Dose: 40 mg Home Med (Desvenlafaxine Succinate [Desvenlafaxine Succinate Er]) 50 mg PO D AILY [facility] Last Admin: 12/26/17 17:01 Dose: 50 mg Ceftriaxone Sodium 1 gm/ (Sodium Chloride) 100 mls @ 100 mls/hr IVPB DAILY [facility]; Protocol Last Admin: 12/26/17 08:37 Dose: 100 mls/hr Levothyroxine Sodium (Synthroid) 75 mcg PO DAILY@0630 [facility] Last Admin: 12/27/17 07:15 Dose: 75 mcg Lisinopril (Zestril) 10 mg PO DAILY [facility] Last Admin: 12/26/17 08:34 Dose: 10 mg Lorazepam (Ativan) 0.5 mg PO DAILY [facility] Naproxen (Naproxen) 500 mg PO Q12 [facility] Last Admin: 12/26/17 22:41 Dose: 500 mg Quetiapine Fumarate (Seroquel) 50 mg PO BID [facility] Last Admin: 12/26/17 17:01 Dose: 50 mg - Labs Labs: 12/27/17 05:25 12/27/17 05:25 PT 12.1 Seconds (9.8-13.1) 12/25/17 13:15 INR 1.1 12/25/17 13:15 APTT 31.8 Seconds (25.6-37.1) 12/25/17 13:15 - Constitutional Appears: Well, Non-toxic, No Acute Distress - Head Exam Head Exam: ATRAUMATIC, NORMOCEPHALIC - Eye Exam Eye Exam: PERRL - ENT Exam ENT Exam: Mucous Membranes Moist - Neck Exam Neck Exam: absent: Lymphadenopathy - Respiratory Exam Respiratory Exam: Clear to Ausculation Bilateral. absent: Rales, Rhonchi, Wheezes - Cardiovascular Exam Cardiovascular Exam: REGULAR RHYTHM, +S1, +S2. absent: JVD - GI/Abdominal Exam GI & Abdominal Exam: Soft, Normal Bowel Sounds. absent: Distended, Firm, Guardi ng, Rigid - Extremities Exam Extremities Exam: absent: Pedal Edema - Neurological Exam Neurological Exam: Awake - Psychiatric Exam Psychiatric exam: Agitated, Anxious - Skin Skin Exam: Normal Color Assessment and Plan - Assessment and Plan (Free Text) Assessment: 77 y/o female with PMHx of HTN, Hypothyroid, anxiety/depression, RA, Hep C and dementia admitted for altered mental status and UTI. Plan: 1) Altered Mental Status likely due to UTI vs. [place] toxicity -UA: large nitrates/elevated WBCs -Head CT: no acute hemorrhage or midline shift -Urine Cx: E. Coli -Blood Cx: Pending -Continue Rocephin 1gm QD -Psych consult- As per Dr. Saxena, recheck [place] levels, taper and stop benzodiazepines as they are likely worsening mental status and increase risk of falls -Pending Physical Therapy evaluation -Hip/Pelvis X-ray: no fracture or dislocations, degenerative changes noted 2) Urinary Tract Infection -afebrile -no leukocytosis -Continue Rocephin 1gm QD -Urine Cx: E. Coli -Blood Cx: Pending -D/C Burt Catheter 3) [place] Toxicity -2nd [place] level: 0.8 -Neurology consult-As per Dr. Winston, Likely due to a combination of medication effects and infection. Please treat the underlying cause and re-consult if there are concerns for a primary [place] cause of encephalopathy -Psych consult- As per Dr. Saxena, recheck [place] levels, taper and stop benzodiazepines as they are likely worsening mental status and increase risk of falls -F/U [place] Levels -TSH: 1.45 3) HTN -stable -c/w lisinopril 10mg QD -monitor 4) Anxiety/Depression - Clonazepam (0.5 mg PO BID [facility]) and Lorazepam (0.5 mg PO DAILY) - STAT Dose of Clonazepam 0.5 mg PO given to patient 5) Prophylaxis -Lovenox 40mg SC QD <Luz Mraia Jimenez - Last Filed: 12/27/17 15:42> Objective - Vital Signs/Intake and Output Vital Signs (last 24 hours): Temp Pulse Resp BP Pulse Ox 97.6 F 95 H 20 179/75 H 96 12/27/17 08:30 12/27/17 08:30 12/27/17 08:30 12/27/17 08:30 12/27/17 08:30 Intake and Output: 12/27/17 12/27/17 06:59 18:59 Intake Total 1450 Output Total 500 Balance 950 - Medications Medications: Current Medications Clonazepam (Klonopin) 0.5 mg PO BID [facility] Last Admin: 12/27/17 10:53 Dose: 0.5 mg Enoxaparin Sodium (Lovenox) 40 mg SC DAILY [facility]; Protocol Last Admin: 12/27/17 09:26 Dose: 40 mg Home Med (Desvenlafaxine Succinate [Desvenlafaxine Succinate Er]) 50 mg PO DAILY [facility] Last Admin: 12/27/17 09:27 Dose: 50 mg Ceftriaxone Sodium 1 gm/ (Sodium Chloride) 100 mls @ 100 mls/hr IVPB DAILY [facility]; Protocol Last Admin: 12/27/17 09:25 Dose: 100 mls/hr Levothyroxine Sodium (Synthroid) 75 mcg PO DAILY@0630 [facility] Last Admin: 12/27/17 07:15 Dose: 75 mcg Lisinopril (Zestril) 10 mg PO DAILY [facility] Last Admin: 12/27/17 09:26 Dose: 10 mg Lorazepam (Ativan) 0.5 mg PO DAILY [facility] Last Admin: 12/27/17 09:25 Dose: 0.5 mg Naproxen (Naproxen) 500 mg PO Q12 [facility] Last Admin: 12/27/17 09:26 Dose: 500 mg Quetiapine Fumarate (Seroquel) 50 mg PO BID [facility] Last Admin: 12/27/17 09:26 Dose: 50 mg - Labs Labs: 12/27/17 05:25 12/27/17 05:25 PT 12.1 Seconds (9.8-13.1) 12/25/17 13:15 INR 1.1 12/25/17 13:15 APTT 31.8 Seconds (25.6-37.1) 12/25/17 13:15 Attending/Attestation - Attestation I have personally seen and examined this patient.: Yes I have fully participated in the care of the patient.: Yes I have reviewed all pertinent clinical information, including history, physical exam and plan: Yes Notes (Text): Pt is calm and cooperative at present- d/c 1:1 . Will also d/c Burt Cath. Worsening of Dementia likely due to [place] Toxicity, Polypharmacy and due to infection. We will keep pt in the hospital for close monitoring. She has been on Psych meds for many years- on [place], Seroquel, Desvenlafaxine , Ativan and Klonopin. Will d/c [place] due to [place] toxicity, taper her Psych med dosages slowly in the hospital. Psych consulted. Continue IV Ceftraixone for E Coli UTI Gait Instability prob due to [place] Toxicity - PT consulted , rec EARNESTINE placement
[2017-12-28] MEDS: Levothyroxine 75 MCG TAB PO SCH (05:52)
[2017-12-28 08:26] LABS: BASO % 0.8 % (0.0-2.0); EOS # 0.2 K/uL (0.0-0.7); EOS % 4.5 % (0.0-4.0); HEMOGLOBIN 10.9 g/dL (12.0-16.0); LYMPH # 1.1 K/uL (1.0-4.3); MEAN CORPUSCULAR HEMOGLOBIN 29.7 pg (27.0-31.0); MEAN CORPUSCULAR HGB CONC 33.8 g/dL (33.0-37.0); MEAN PLATELET VOLUME 6.6 fl (7.2-11.7); MONO # 0.3 K/uL (0.0-0.8); MONO % 8.5 % (0.0-10.0); NEUT # 2.4 K/uL (1.8-7.0); NEUT % 59.2 % (50.0-75.0); NRBC % 0.1 % (0.0-0.0); RBC 3.68 Mil/uL (3.80-5.20); RED CELL DISTRIBUTION WIDTH 13.7 % (11.5-14.5); WHITE BLOOD COUNT 4.1 K/uL (4.8-10.8)
[2017-12-28 08:38] LABS: ALB/GLOB RATIO 0.9 (1.0-2.1); ALBUMIN 3.7 g/dL (3.5-5.0); ALT/SGPT 42 U/L (9-52); AST/SGOT 30 U/L (14-36); BLOOD UREA NITROGEN 10 mg/dl (7-17); CALCIUM 9.9 mg/dL (8.4-10.2); GFR NON-AFRICAN AMERICAN > 60
[2017-12-28] MEDS: Enoxaparin 40 mg Syringe SC SCH (09:19)
[2017-12-28] MEDS: DESVENLAFAXINE SUCCINATE 50 MG PO SCH (09:19)
[2017-12-28] MEDS: Naproxen 500 MG TAB PO SCH ×2 (09:19→22:48)
--- NOTE | 2017-12-28 10:10 | CP.PCM.PN ---
<David Peña - Last Filed: 12/28/17 15:28> Subjective - Date & Time of Evaluation Date of Evaluation: 12/28/17 Time of Evaluation: 10:08 - Subjective Subjective: 77 y/o female was seen and evaluated at bedside. Patient not on on-to-one observation at this time. Patient has been resting comfortably this morning. Patient is not orientated to time or place. Patient asking for a bedpan this morning, however has been unable to urinate Objective - Vital Signs/Intake and Output Vital Signs (last 24 hours): Temp Pulse Resp BP Pulse Ox 97.9 F 79 19 176/77 H 96 12/28/17 08:18 12/28/17 09:20 12/28/17 08:18 12/28/17 09:20 12/28/17 08:18 - Medications Medications: Current Medications Clonazepam (Klonopin) 0.5 mg PO BID [facility] Last Admin: 12/28/17 09:18 Dose: 0.5 mg Enoxaparin Sodium (Lovenox) 40 mg SC DAILY [facility]; Protocol Last Admin: 12/28/17 09:19 Dose: 40 mg Home Med (Desvenlafaxine Succinate [Desvenlafaxine Succinate Er]) 50 mg PO DAILY [facility] Last Admin: 12/28/17 09:19 Dose: 50 mg Ceftriaxone Sodium 1 gm/ (Sodium Chloride) 100 mls @ 100 mls/hr IVPB DAILY [facility]; Protocol Last Admin: 12/28/17 09:20 Dose: 100 mls/hr Levothyroxine Sodium (Synthroid) 75 mcg PO DAILY@0630 [facility] Last Admin: 12/28/17 05:52 Dose: 75 mcg Lisinopril (Zestril) 10 mg PO DAILY [facility] Last Admin: 12/28/17 09:20 Dose: 10 mg Lorazepam (Ativan) 0.5 mg PO DAILY [facility] Last Admin: 12/28/17 09:18 Dose: 0.5 mg Naproxen (Naproxen) 500 mg PO Q12 [facility] Last Admin: 12/28/17 09:19 Dose: 500 mg Quetiapine Fumarate (Seroquel) 50 mg PO BID [facility] Last Admin: 12/28/17 09:20 Dose: 50 mg - Labs Labs: 12/28/17 08:17 12/28/17 08:17 PT 12.1 Seconds (9.8-13.1) 12/25/17 13:15 INR 1.1 12/25/17 13:15 APTT 31.8 Seconds (25.6-37.1) 12/25/17 13:15 - Constitutional Appears: Well, Non-toxic, No Acute Distress - Head Exam Head Exam: ATRAUMATIC, NORMOCEPHALIC - ENT Exam ENT Exam: Mucous Membranes Moist - Neck Exam Neck Exam: Full ROM - Respiratory Exam Respiratory Exam: Clear to Ausculation Bilateral, NORMAL BREATHING PATTERN. absent: Rales, Rhonchi, Wheezes - Cardiovascular Exam Cardiovascular Exam: REGULAR RHYTHM, RRR, +S1, +S2. absent: JVD - GI/Abdominal Exam GI & Abdominal Exam: Soft, Normal Bowel Sounds. absent: Firm, Guarding, Rigid - Extremities Exam Extremities Exam: absent: Calf Tenderness, Pedal Edema - Neurological Exam Neurological Exam: Awake - Psychiatric Exam Psychiatric exam: Normal Affect, Normal Mood Assessment and Plan - Assessment and Plan (Free Text) Assessment: 77 y/o female with PMHx of HTN, Hypothyroid, anxiety/depression, RA, Hep C and dementia admitted for altered mental status and UTI. Plan: 1) Altered Mental Status likely due to UTI vs. [place] toxicity -UA: large nitrates/elevated WBCs -Head CT: no acute hemorrhage or midline shift -Urine Cx: E. Coli -Blood Cx: Pending -Continue Rocephin 1gm QD -Physical Therapy- patient functional status improving -Hip/Pelvis X-ray: no fracture or dislocations, degenerative changes noted - D/c'ed One-to-one observation at 8:45 AM on 12/28/17 2) Urinary Tract Infection with urinary retention- patient will continue to be treated for urinary tract infection -afebrile -no leukocytosis -Continue Rocephin 1gm QD -Patient unable to void, patient voided 900cc via straight cath -Urine Cx: E. Coli -Blood Cx: Pending 3) [place] Toxicity -3rd [place] level: 0.6 (trending down) 3) HTN -stable -c/w lisinopril 10mg QD -monitor 4) Anxiety/Depression -Clonazepam (0.5 mg PO BID [facility])- medication to be slowly tapered due to long- standing history of anxiety/depression -Lorazepam (0.5 mg PO DAILY) 5) Prophylaxis -Lovenox 40mg SC QD <Luz Maria Jimenez - Last Filed: 12/28/17 15:37> Objective - Vital Signs/Intake and Output Vital Signs (last 24 hours): Temp Pulse Resp BP Pulse Ox 97.9 F 79 19 176/77 H 96 12/28/17 09:00 12/28/17 09:20 12/28/17 09:00 12/28/17 09:20 12/28/17 09:00 - Medications Medications: Current Medications Clonazepam (Klonopin) 0.5 mg PO BID [facility] Last Admin: 12/28/17 09:18 Dose: 0.5 mg Enoxaparin Sodium (Lovenox) 40 mg SC DAILY [facility]; Protocol Last Admin: 12/28/17 09:19 Dose: 40 mg Home Med (Desvenlafaxine Succinate [Desvenlafaxine Succinate Er]) 50 mg PO DAILY [facility] Last Admin: 12/28/17 09:19 Dose: 50 mg Ceftriaxone Sodium 1 gm/ (Sodium Chloride) 100 mls @ 100 mls/hr IVPB DAILY [facility]; Protocol Last Admin: 12/28/17 09:20 Dose: 100 mls/hr Levothyroxine Sodium (Synthroid) 75 mcg PO DAILY@0630 [facility] Last Admin: 12/28/17 05:52 Dose: 75 mcg Lisinopril (Zestril) 10 mg PO DAILY [facility] Last Admin: 12/28/17 09:20 Dose: 10 mg Lorazepam (Ativan) 0.5 mg PO DAILY [facility] Last Admin: 12/28/17 09:18 Dose: 0.5 mg Naproxen (Naproxen) 500 mg PO Q12 [facility] Last Admin: 12/28/17 09:19 Dose: 500 mg Quetiapine Fumarate (Seroquel) 50 mg PO BID [facility] Last Admin: 12/28/17 09:20 Dose: 50 mg - Labs Labs: 12/28/17 08:17 12/28/17 08:17 PT 12.1 Seconds (9.8-13.1) 12/25/17 13:15 INR 1.1 12/25/17 13:15 APTT 31.8 Seconds (25.6-37.1) 12/25/17 13:15 Attending/Attestation - Attestation I have personally seen and examined this patient.: Yes I have fully participated in the care of the patient.: Yes I have reviewed all pertinent clinical information, including history, physical exam and plan: Yes Notes (Text): Patient is being monitored closely while being slowly tapered off Benzodiazepine , she has been on this med for years . [place] discontinued due to high level on admission ( prob etiology for worsening mental status )and level being followed. Cont IV Ceftriaxone for UTI Pt also has some Urinary Retention - Bladder training in progress
[2017-12-29] MEDS: Levothyroxine 75 MCG TAB PO SCH (05:56)
[2017-12-29 06:09] LABS: HEMOGLOBIN 11.1 g/dL (12.0-16.0); MEAN CELL VOLUME 88.1 fl (81.0-99.0); MEAN CORPUSCULAR HEMOGLOBIN 29.5 pg (27.0-31.0); MEAN CORPUSCULAR HGB CONC 33.5 g/dL (33.0-37.0); RBC 3.77 Mil/uL (3.80-5.20); RED CELL DISTRIBUTION WIDTH 14.1 % (11.5-14.5); WHITE BLOOD COUNT 4.2 K/uL (4.8-10.8)
[2017-12-29 06:22] LABS: ALB/GLOB RATIO 0.9 (1.0-2.1); ALBUMIN 3.5 g/dL (3.5-5.0); ALT/SGPT 48 U/L (9-52); AST/SGOT 33 U/L (14-36); BLOOD UREA NITROGEN 10 mg/dl (7-17); GFR NON-AFRICAN AMERICAN > 60
[2017-12-29 08:15] VITALS: BP 159/79; PULSE 69; RESP 20; TEMP 97.6
--- NOTE | 2017-12-29 08:47 | CP.PCM.DIS ---
Addendum entered and electronically signed by Kinsey Campbell MD 12/29/17 14:37: Patient was seen and examined bedside . All chart and clinical data reviewed. Case discussed with resident . Agree with assessment and discharge planning to TCU 77 y/o female with PMH HTN,hypothyroidism,dementia, anxiety,presented with AMS for the last 2 weeks.She was diagnosed with lithium toxicity and UTI .At present hemodynamically stable, afebrile, still with memory problems and flat affect Will d/c to TCu for physical therapy and continuation of IV antibiotoics for UTI will need to call psych to follow up patient in TCU lithium discontinued katia clonazepam slowly Continue Synthroid Po for hypothyroidism Original Note: Provider - Provider Date of Admission: 12/26/17 16:16 Attending physician: Miguel Garber MD Primary care physician: Dr. Davidson Consults: Neurology- Dr. Winston Psychiatry- Dr. Saxena Time Spent in preparation of Discharge (in minutes): 30 Hospital Course - Lab Results Lab Results: Micro Results 12/25/17 13:15 Blood Blood Culture - Preliminary NO GROWTH AFTER 3 DAYS 12/25/17 16:39 Urine,Catheterized Urine Culture - Final Escherichia Coli Most Recent Lab Values WBC 4.2 K/uL (4.8-10.8) L 12/29/17 05:40 RBC 3.77 Mil/uL (3.80-5.20) L 12/29/17 05:40 Hgb 11.1 g/dL (12.0-16.0) L 12/29/17 05:40 Hct 33.2 % (34.0-47.0) L 12/29/17 05:40 MCV 88.1 fl (81.0-99.0) 12/29/17 05:40 MCH 29.5 pg (27.0-31.0) 12/29/17 05:40 MCHC 33.5 g/dL (33.0-37.0) 12/29/17 05:40 RDW 14.1 % (11.5-14.5) 12/29/17 05:40 Plt Count 164 K/uL (130-400) 12/29/17 05:40 MPV 6.6 fl (7.2-11.7) L 12/28/17 08:17 Neut % (Auto) 59.2 % (50.0-75.0) 12/28/17 08:17 Lymph % (Auto) 27.0 % (20.0-40.0) 12/28/17 08:17 [place] % (Auto) 8.5 % (0.0-10.0) 12/28/17 08:17 Eos % (Auto) 4.5 % (0.0-4.0) H 12/28/17 08:17 Baso % (Auto) 0.8 % (0.0-2.0) 12/28/17 08:17 Neut # (Auto) 2.4 K/uL (1.8-7.0) 12/28/17 08:17 Lymph # (Auto) 1.1 K/uL (1.0-4.3) 12/28/17 08:17 [place] # (Auto) 0.3 K/uL (0.0-0.8) 12/28/17 08:17 Eos # (Auto) 0.2 K/uL (0.0-0.7) 12/28/17 08:17 Baso # (Auto) 0.0 K/uL (0.0-0.2) 12/28/17 08:17 PT 12.1 Seconds (9.8-13.1) 12/25/17 13:15 INR 1.1 12/25/17 13:15 APTT 31.8 Seconds (25.6-37.1) 12/25/17 13:15 pO2 25 mm/Hg (30-55) L 12/25/17 12:48 VBG pH 7.28 (7.32-7.43) L 12/25/17 12:48 VBG pCO2 63 mmHg (40-60) H 12/25/17 12:48 VBG HCO3 24.5 mmol/L 12/25/17 12:48 VBG Total CO2 31.5 mmol/L (22-28) H 12/25/17 12:48 VBG O2 Sat (Calc) 38.5 % (40-65) L 12/25/17 12:48 VBG Base Excess 1.4 mmol/L (0.0-2.0) 12/25/17 12:48 VBG Potassium 4.2 mmol/L (3.6-5.2) 12/25/17 12:48 Sodium 138.0 mmol/L (132-148) 12/25/17 12:48 Chloride 108.0 mmol/L (98-107) H 12/25/17 12:48 Glucose 110 mg/dL (65-105) H 12/25/17 12:48 Lactate 1.1 mmol/L (0.7-2.1) 12/25/17 12:48 FiO2 21.0 % 12/25/17 12:48 Sodium 144 mmol/l (132-148) 12/29/17 05:40 Potassium 4.3 MMOL/L (3.6-5.0) 12/29/17 05:40 Chloride 108 mmol/L (98-107) H 12/29/17 05:40 Carbon Dioxide 28 mmol/L (22-30) 12/29/17 05:40 Anion Gap 12 (10-20) 12/29/17 05:40 BUN 10 mg/dl (7-17) 12/29/17 05:40 Creatinine 0.6 mg/dl (0.7-1.2) L 12/29/17 05:40 Est GFR ( Amer) > 60 12/29/17 05:40 Est GFR (Non-Af Amer) > 60 12/29/17 05:40 POC Glucose (mg/dL) 89 mg/dL (65-110) 12/29/17 05:41 Random Glucose 93 mg/dL (65-105) 12/29/17 05:40 Calcium 10.0 mg/dL (8.4-10.2) 12/29/17 05:40 Phosphorus 3.8 mg/dl (2.5-4.5) 12/27/17 05:25 Magnesium 1.6 MG/DL (1.6-2.3) 12/27/17 05:25 Total Bilirubin 0.5 mg/dl (0.2-1.3) 12/29/17 05:40 AST 33 U/L (14-36) 12/29/17 05:40 ALT 48 U/L (9-52) 12/29/17 05:40 Alkaline Phosphatase 67 U/L (38-126) 12/29/17 05:40 Ammonia 31 umo/L (11-51) 12/25/17 13:15 Troponin I < 0.0120 ng/mL (0.00-0.120) 12/25/17 14:08 NT-Pro-B Natriuret Pep 55.3 pg/ml (0-900) 12/25/17 14:08 Total Protein 7.5 G/DL (6.3-8.2) 12/29/17 05:40 Albumin 3.5 g/dL (3.5-5.0) 12/29/17 05:40 Globulin 3.9 gm/dL (2.2-3.9) 12/29/17 05:40 Albumin/Globulin Ratio 0.9 (1.0-2.1) L 12/29/17 05:40 Lipase 80 U/L (23-300) 12/25/17 14:08 TSH 3rd Generation 1.45 mIU/ML (0.46-4.68) 12/26/17 16:54 Venous Blood Potassium 4.2 mmol/L (3.6-5.2) 12/25/17 12:48 Urine Color Yellow (YELLOW) 12/25/17 16:39 Urine Clarity Slighty-cloudy (Clear) 12/25/17 16:39 Urine pH 6.0 (5.0-8.0) 12/25/17 16:39 Ur Specific [place] 1.011 (1.003-1.030) 12/25/17 16:39 Urine Protein Negative mg/dL (NEGATIVE) 12/25/17 16:39 Urine Glucose (UA) Neg mg/dL (Normal) 12/25/17 16:39 Urine Ketones Negative mg/dL (NEGATIVE) 12/25/17 16:39 Urine Blood Negative (NEGATIVE) 12/25/17 16:39 Urine Nitrate Positive (NEGATIVE) H 12/25/17 16:39 Urine Bilirubin Negative (NEGATIVE) 12/25/17 16:39 Urine Urobilinogen 0.2-1.0 mg/dL (0.2-1.0) 12/25/17 16:39 Ur Leukocyte Esterase [place]/uL (Negative) 12/25/17 16:39 Urine RBC (Auto) 3 /hpf (0-3) 12/25/17 16:39 Urine Microscopic WBC 23 /hpf (0-5) H 12/25/17 16:[address] [place] 0.6 MMOL/L (0.6-1.2) 12/28/17 08:17 - Hospital Course Hospital Course: 77 y/o female with a PMHx of dementia, hep c, HTN, hypothyroidism, anxiety/depression was brought to the ED due to complaints of altered mental status. Patient's family reported that patient's AMS had worsened over the last two weeks. On admission, patient had an elevated [place] level, and a urinary tract infection. Patient's family complained of frequent falls, however, denied trauma or injury. The patient did not present with any complaints. Patient was seen resting comfortably today, complained of constipation, however denied F/N /V/SOB/CP. Patient will be going to TCU for further care 1) Altered Mental Status likely due to UTI vs. [place] toxicity -UA: large nitrates/elevated WBCs -Head CT: no acute hemorrhage or midline shift -Urine Cx: E. Coli -Blood Cx: No growth after 3 days -Physical Therapy- patient functional status improving, recommended [place] -Hip/Pelvis X-ray: no fracture or dislocations, degenerative changes noted 2) Urinary Tract Infection with urinary retention- patient will continue to be treated for urinary tract infection -Continue Rocephin 1gm IV QD -Urine Cx: E. Coli -Blood Cx: No growth after 3 days 3) [place] Toxicity -resolved -d/c [place] at this time 3) HTN - c/w home medication- Lisinopril 10 mg PO DAILY 4) Anxiety/Depression -Clonazepam (0.5 mg PO BID [facility])- medication to be slowly tapered due to long- standing history of anxiety/depression -Lorazepam (0.5 mg PO DAILY) 5) Prophylaxis -Lovenox 40mg SC QD - Date & Time of H&P Date of H&P: 12/29/17 Time of H&P: 11:36 Discharge Exam - Head Exam Head Exam: ATRAUMATIC, NORMOCEPHALIC - Eye Exam Eye Exam: Normal appearance, PERRL - ENT Exam ENT Exam: Mucous Membranes Dry, Mucous Membranes Moist - Respiratory Exam Respiratory Exam: Clear to PA & Lateral, NORMAL BREATHING PATTERN. absent: Rales, Rhonchi, Wheezes - Cardiovascular Exam Cardiovascular Exam: REGULAR RHYTHM, RRR, +S1, +S2. absent: JVD - GI/Abdominal Exam GI & Abdominal Exam: Normal Bowel Sounds, Soft. absent: Distended, Firm, Guarding, Rigid - Back Exam Back exam: absent: CVA tenderness (L), CVA tenderness (R) - Neurological Exam Neurological exam: Alert - Psychiatric Exam Psychiatric exam: Normal Affect, Normal Mood - Skin Skin Exam: Normal Color Discharge Plan - Discharge Medications Prescriptions: cefTRIAXone 1 gm [Rocephin 1 gram IVPB] 1 gm IVPB DAILY #7 bag - Follow Up Plan Condition: GOOD Disposition: HOME/ ROUTINE Instructions: Urinary Tract Infection, Adult (DC)
[2017-12-29] MEDS: DESVENLAFAXINE SUCCINATE 50 MG PO SCH (09:10)
[2017-12-29] MEDS: Enoxaparin 40 mg Syringe SC SCH (09:10)
[2017-12-30 08:15] VITALS: O2SAT 98
== END 2017-12-29 12:39 | DRG 92 ==
LOC: H.ER 11:33 → H.ERHOLD 17:51 → H.MEDSURG1 20:19 → OBSVTOIN 12-26 16:16 → H.MEDSURG1 12-26 21:13
DX: G92 Toxic encephalopathy (principal); N39.0 Urinary tract infection, site not specified; T43.595A Adverse effect of other antipsychotics and neuroleptics, initial encounter; F02.80 Dementia in other diseases classified elsewhere, unspecified severity, without behavioral disturbance, psychotic disturbance, mood disturbance, and anxiety; G30.9 Alzheimer's disease, unspecified; R41.82 Altered mental status, unspecified; B96.20 Unspecified Escherichia coli [E. coli] as the cause of diseases classified elsewhere; R33.8 Other retention of urine; R26.89 Other abnormalities of gait and mobility; I10 Essential (primary) hypertension; E03.9 Hypothyroidism, unspecified; E78.00 Pure hypercholesterolemia, unspecified; R29.6 Repeated falls; F32.9 Major depressive disorder, single episode, unspecified; F41.9 Anxiety disorder, unspecified; M19.90 Unspecified osteoarthritis, unspecified site; Z88.0 Allergy status to penicillin; Z86.19 Personal history of other infectious and parasitic diseases; Y92.89 Other specified places as the place of occurrence of the external cause

== ENCOUNTER 2017-12-29 13:27 | Inpatient (IN) | payer OTHER ==
[2017-12-29 14:07] VITALS: BMI 36.7
[2017-12-29] MEDS ORDERED: Tuberculin 5 Units/0.1 ml Inj ID ONE (16:21)
--- NOTE | 2017-12-30 07:28 | CP.PCM.CON ---
History of Present Illness - History of Present Illness History of Present Illness: Psychiatry consult note CC: "I'm okay." HPI: 77 y/o female with a PMHx of dementia, hep c, HTN, hypothyroidism, anxiety/depression, admitted to TCU after improvement of AMS, likely due to [place] toxicity and/or UTI. Patient continues to be a poor historian. She is A + O x self, "hospital." She can not explain why she took [place] in the past. She does report a history of depression and states that she currently feels sad, but can not elaborate. She can not tell senior writer where she lives. No acute AH/VH/SI/HI. PPHx: Unclear past psychiatric history PMD: [place] PMHx: Hep C, HTN, dementia, hypothyroid, anxiety/depression ALL: PCN, Cortisone PsurgHx: cholecystectomy Social: no hx of tobacco, drug abuse, etoh. lives at home with , no court administrator FamilyHx: denies MSE: A + O x self and "hospital", good eye contact, speaks Pashto and Algerian, speech normal volume; thought process- coherent, loose at times; denies AH/VH/SI/HI; poor I/J Impression: 77 yo female w/ improved mental status from initial psychiatric evaluation, but patient continues to have memory deficits due to chronic dementia. It is unclear if that patient has a history of mood disorder (r/o Depressive Disorder vs Bipolar Disorder). Recommendations: -Do not restart [place] as it is unclear why she was taking this medication; primary team should obtain additional collateral history about the patient's mental health history -Continue Seroquel; can increase dosage if patient starts to have behavioral disturbances or mood fluctuations -Continue to taper and stop benzodiazepines as they can worsen mental status and increase risks of falls Past Patient History - Past Medical History & Family History Past Medical History?: Yes - Past Social History Smoking Status: Never Smoked - CARDIAC Hx Cardiac Disorders: Yes Hx Hypercholesterolemia: Yes Hx Hypertension: Yes - PULMONARY Hx Respiratory Disorders: No - NEUROLOGICAL Hx Neurological Disorder: Yes Hx Alzheimer's Disease: Yes Hx Dementia: Yes - HEENT Hx HEENT Problems: Yes Other/Comment: Wears eyeglasses - RENAL Hx Chronic Kidney Disease: No - ENDOCRINE/METABOLIC Hx Endocrine Disorders: Yes Hx Hypothyroidism: Yes - HEMATOLOGICAL/ONCOLOGICAL Hx AIDS: No Hx Human Immunodeficiency Virus (HIV): No - INTEGUMENTARY Hx Dermatological Problems: No - MUSCULOSKELETAL/RHEUMATOLOGICAL Hx Falls: Yes - GASTROINTESTINAL Hx Gastrointestinal Disorders: No - GENITOURINARY/GYNECOLOGICAL Hx Genitourinary Disorders: Yes Hx Incontinence: Yes - PSYCHIATRIC Hx Substance Use: No - SURGICAL HISTORY Hx Surgeries: Yes Hx Cholecystectomy: Yes - ANESTHESIA Hx Anesthesia: Yes Hx Anesthesia Reactions: No Meds Allergies/Adverse Reactions: Allergies Allergy/AdvReac Type Severity Reaction Status Date / Time cortisone Allergy RASH Verified 12/29/17 14:03 Penicillins Allergy RASH Verified 12/29/17 14:03 - Medications Medications: Current Medications Acetaminophen (Tylenol 325mg Tab) 650 mg PO Q6 PRN PRN Reason: Pain, Mild (1-3) Clonazepam (Klonopin) 0.5 mg PO BID PRN PRN Reason: Anxiety Last Admin: 12/29/17 21:28 Dose: 0.5 mg Docusate Sodium (Colace) 100 mg PO BID [facility] Last Admin: 12/29/17 16:27 Dose: 100 mg Enoxaparin Sodium (Lovenox) 40 mg SC DAILY MARK; Protocol Ceftriaxone Sodium 1 gm/ (Sodium Chloride) 100 mls @ 100 mls/hr IVPB DAILY [facility] Lactulose (Enulose) 20 gm PO DAILY PRN PRN Reason: Constipation Levothyroxine Sodium (Synthroid) 75 mcg PO DAILY [facility] Lisinopril (Zestril) 10 mg PO DAILY [facility] Lorazepam (Ativan) 0.5 mg PO DAILY [facility] Quetiapine Fumarate (Seroquel) 50 mg PO BID [facility] Last Admin: 12/29/17 16:27 Dose: 50 mg Results - Vital Signs Recent Vital Signs: Last Vital Signs Temp 87.5 F L 12/29/17 21:23 Pulse 77 12/29/17 21:23 Resp 20 12/29/17 21:23 BP 130/76 12/29/17 21:23 Pulse Ox 94 L 12/29/17 21:23
--- NOTE | 2017-12-30 07:30 | CP.PCM.HP ---
<David Peña - Last Filed: 12/30/17 07:37> History of Present Illness - History of Present Illness History of Present Illness: 77 y/o female with a PMHx of dementia, hep c, HTN, hypothyroidism, anxiety/depression was brought to the ED due to complaints of altered mental status. Patient's family reported that patient's AMS had worsened over the last two weeks. On admission, patient had an elevated [place] level, and a urinary tract infection. Patient's family complained of frequent falls, however, denied trauma or injury. The patient did not present with any complaints. Patient was treated for the UTI and [place] Toxicity and transferred to TCU for further rehabilitation. Patient was seen resting comfortably today, denies any complaints of F/N/V/SOB/CP. Present on Admission - Present on Admission Any Indicators Present on Admission: No History of DVT/PE: No History of Uncontrolled Diabetes: No Urinary Catheter: Yes Decubitus Ulcer Present: No Review of Systems - Constitutional Constitutional: Frequent Falls, Weakness. absent: Chills, Fever - EENT Eyes: absent: Blurred Vision, Change in Vision Nose/Mouth/Throat: Dysphagia - Cardiovascular Cardiovascular: absent: Chest Pain, Chest Pain at Rest, Chest Pain with Activity, Dyspnea, Dyspnea on Exertion - Respiratory Respiratory: absent: Cough - Gastrointestinal Gastrointestinal: absent: Abdominal Pain, Nausea, Vomiting - Neurological Neurological: absent: Numbness, Tingling - Psychiatric Psychiatric: absent: Anxiety Past Patient History - Past Medical History & Family History Past Medical History?: Yes - Past Social History Smoking Status: Never Smoked - CARDIAC Hx Cardiac Disorders: Yes Hx Hypercholesterolemia: Yes Hx Hypertension: Yes - PULMONARY Hx Respiratory Disorders: No - NEUROLOGICAL Hx Neurological Disorder: Yes Hx Alzheimer's Disease: Yes Hx Dementia: Yes - HEENT Hx HEENT Problems: Yes Other/Comment: Wears eyeglasses - RENAL Hx Chronic Kidney Disease: No - ENDOCRINE/METABOLIC Hx Endocrine Disorders: Yes Hx Hypothyroidism: Yes - HEMATOLOGICAL/ONCOLOGICAL Hx AIDS: No Hx Human Immunodeficiency Virus (HIV): No - INTEGUMENTARY Hx Dermatological Problems: No - MUSCULOSKELETAL/RHEUMATOLOGICAL Hx Falls: Yes - GASTROINTESTINAL Hx Gastrointestinal Disorders: No - GENITOURINARY/GYNECOLOGICAL Hx Genitourinary Disorders: Yes Hx Incontinence: Yes - PSYCHIATRIC Hx Substance Use: No - SURGICAL HISTORY Hx Surgeries: Yes Hx Cholecystectomy: Yes - ANESTHESIA Hx Anesthesia: Yes Hx Anesthesia Reactions: No Meds Allergies/Adverse Reactions: Allergies Allergy/AdvReac Type Severity Reaction Status Date / Time cortisone Allergy RASH Verified 12/29/17 14:03 Penicillins Allergy RASH Verified 12/29/17 14:03 Physical Exam - Constitutional Appears: Well, Non-toxic, No Acute Distress - Head Exam Head Exam: ATRAUMATIC, NORMOCEPHALIC - Eye Exam Eye Exam: Normal appearance, PERRL - ENT Exam ENT Exam: Mucous Membranes Moist - Respiratory Exam Respiratory Exam: Clear to Auscultation Bilateral, NORMAL BREATHING PATTERN. absent: Rales, Rhonchi, Wheezes - Cardiovascular Exam Cardiovascular Exam: REGULAR RHYTHM, RRR, +S1, +S2 - GI/Abdominal Exam GI & Abdominal Exam: Normal Bowel Sounds, Soft. absent: Distended, Firm, Guarding - Neurological Exam Neurological exam: Alert - Psychiatric Exam Psychiatric exam: Normal Mood - Skin Skin Exam: Normal Color Results - Vital Signs Recent Vital Signs: Last Vital Signs Temp 87.5 F L 12/29/17 21:23 Pulse 77 12/29/17 21:23 Resp 20 12/29/17 21:23 BP 130/76 12/29/17 21:23 Pulse Ox 94 L 12/29/17 21:23 Assessment & Plan - Assessment and Plan (Free Text) Assessment: 77 y/o female with PMHx of HTN, Hypothyroid, anxiety/depression, RA, Hep C and dementia admitted for altered mental status and UTI. Plan: 1) Altered Mental Status likely due to UTI vs. [place] toxicity -UA: large nitrates/elevated WBCs -Head CT: no acute hemorrhage or midline shift -Urine Cx: E. Coli -Blood Cx: No growth after 3 days -Physical Therapy- patient to continue physical therapy in TCU -Hip/Pelvis X-ray: no fracture or dislocations, degenerative changes noted - Psych Consult- Dr. Saxena, recommendations appreciated 2) Urinary Tract Infection with urinary retention- patient will continue to be treated for urinary tract infection -Continue Rocephin 1gm IV QD -Urine Cx: E. Coli -Blood Cx: No growth after 3 days 3) [place] Toxicity -resolved -d/c [place] at this time 3) HTN - c/w home medication- Lisinopril 10 mg PO DAILY 4) Anxiety/Depression -Clonazepam (0.5 mg PO BID [facility])- medication to be slowly tapered due to long- standing history of anxiety/depression -Lorazepam (0.5 mg PO DAILY) 5) Prophylaxis -Lovenox 40mg SC QD - Date & Time Date: 12/30/17 Time: 07:37 <Miguel Garber D - Last Filed: 12/30/17 13:19> Results - Vital Signs Recent Vital Signs: Last Vital Signs Temp 97.7 F 12/30/17 08:25 Pulse 68 12/30/17 08:52 Resp 20 12/30/17 08:25 BP 132/65 12/30/17 08:52 Pulse Ox 99 12/30/17 08:25 Attending/Attestation - Attestation I have personally seen and examined this patient.: Yes I have fully participated in the care of the patient.: Yes I have reviewed all pertinent clinical information: Yes Notes (Text): 12/30/17 13:18 Patient seen and examined with resident. Case discussed and agreed with assessment and plan of management.
[2017-12-30] MEDS: Levothyroxine 75 MCG TAB PO SCH (08:12)
[2017-12-30] MEDS: Enoxaparin 40 mg Syringe SC SCH (08:51)
[2017-12-30] MEDS ORDERED: cefTRIAXone IV 1 gm in Dextros 50 ML BAG IVPB SCH (09:00)
[2017-12-31] MEDS: Levothyroxine 75 MCG TAB PO SCH (06:19)
[2017-12-31] MEDS: Enoxaparin 40 mg Syringe SC SCH (08:49)
[2018-01-01] MEDS: Levothyroxine 75 MCG TAB PO SCH (05:32)
[2018-01-01] MEDS: Enoxaparin 40 mg Syringe SC SCH (09:01)
[2018-01-01 12:56] LABS: RENAL EPITHELIAL 6 /hpf (0-3); SQUAMOUS EPITHIAL < 1 /hpf (0-5); URINE BACTERIA RARE (<OCC); URINE BILIRUBIN NEGATIVE (NEGATIVE); URINE BLOOD NEGATIVE (NEGATIVE); URINE CLARITY SLIGHTY-CLOUDY (Clear); URINE COLOR YELLOW (YELLOW); URINE GLUCOSE (UA) NEG (Normal); URINE LEUKOCYTE ESTERASE MOD Leu/uL (Negative); URINE PROTEIN NEGATIVE (NEGATIVE); URINE UROBILINOGEN 0.2-1.0 mg/dL (0.2-1.0)
[2018-01-02] MEDS: Levothyroxine 75 MCG TAB PO SCH (06:13)
[2018-01-02] MEDS: Enoxaparin 40 mg Syringe SC SCH (08:44)
[2018-01-03] MEDS: Levothyroxine 75 MCG TAB PO SCH (06:23)
[2018-01-03] MEDS: Enoxaparin 40 mg Syringe SC SCH (08:07)
--- NOTE | 2018-01-03 10:00 | CP.PCM.PN ---
Subjective - Date & Time of Evaluation Date of Evaluation: 01/03/18 Time of Evaluation: 10:30 - Subjective Subjective: Patient seen and examined during PTv . Doing well. Participating with PT. Mood apperas much improved . Family bedside . All questions answered . Hemodynamically stable, afebrile. Urinary retention has resolved , able to void freely at present Objective - Vital Signs/Intake and Output Vital Signs (last 24 hours): Temp Pulse Resp BP Pulse Ox 97.5 F L 65 19 156/90 H 97 01/03/18 08:07 01/03/18 08:07 01/03/18 08:07 01/03/18 08:07 01/03/18 08:07 - Medications Medications: Current Medications Acetaminophen (Tylenol 325mg Tab) 650 mg PO Q6 PRN PRN Reason: Pain, Mild (1-3) Last Admin: 01/01/18 20:52 Dose: 650 mg Clonazepam (Klonopin) 0.5 mg PO BID PRN PRN Reason: Anxiety Last Admin: 01/02/18 18:01 Dose: 0.5 mg Docusate Sodium (Colace) 100 mg PO BID [facility] Last Admin: 01/03/18 09:31 Dose: Not Given Enoxaparin Sodium (Lovenox) 40 mg SC DAILY [facility]; Protocol Last Admin: 01/03/18 08:07 Dose: 40 mg Lactulose (Enulose) 20 gm PO DAILY PRN PRN Reason: Constipation Levothyroxine Sodium (Synthroid) 75 mcg PO DAILY@0630 [facility] Last Admin: 01/03/18 06:23 Dose: 75 mcg Lisinopril (Zestril) 10 mg PO DAILY [facility] Last Admin: 01/03/18 08:07 Dose: 10 mg Lorazepam (Ativan) 0.5 mg PO DAILY [facility] Last Admin: 01/03/18 08:07 Dose: 0.5 mg Quetiapine Fumarate (Seroquel) 50 mg PO BID [facility] Last Admin: 01/03/18 08:08 Dose: 50 mg - Constitutional Appears: Non-toxic, No Acute Distress, Other (obese ) - Head Exam Head Exam: ATRAUMATIC, NORMAL INSPECTION, NORMOCEPHALIC - Eye Exam Eye Exam: EOMI, Normal appearance, PERRL Pupil Exam: NORMAL ACCOMODATION - ENT Exam ENT Exam: Mucous Membranes Moist, Normal Exam - Neck Exam Neck Exam: Full ROM, Normal Inspection - Respiratory Exam Respiratory Exam: Clear to Ausculation Bilateral, NORMAL BREATHING PATTERN. absent: Rales, Rhonchi, Wheezes - Cardiovascular Exam Cardiovascular Exam: REGULAR RHYTHM, RRR, +S1, +S2. absent: JVD - GI/Abdominal Exam GI & Abdominal Exam: Soft, Normal Bowel Sounds. absent: Distended, Guarding, Rebound - Rectal Exam Rectal Exam: Deferred - Extremities Exam Extremities Exam: Full ROM, Normal Capillary Refill, Normal Inspection. absent: Pedal Edema - Neurological Exam Neurological Exam: Alert, Awake, CN II-XII Intact Additional comments: oriented to time place and person but with memory problems - Psychiatric Exam Psychiatric exam: Normal Affect - Skin Skin Exam: Dry, Normal Color, Warm Assessment and Plan - Assessment and Plan (Free Text) Assessment: 77 y/o female with PMHx of HTN, Hypothyroid, anxiety/depression, RA, Hep C and dementia admitted for altered mental status and UTI.She wsa transferred to TCU for PT and continuation of IV antibiotics. Psychiatry also was consulted to help with management of her depression . At present doing well, mood improved , participating with PT> 1. Altered Mental Status multifactorial -- improved likely due to UTI , [place] toxicity and dementia treated for UTI and lithium discontinued Head CT showed no acute pathology psych consulted and started Seroquel 50 mg PO BID with improvement of her mood Continue tapering off benzodiazepines Continue PT 2. Urinary Tract Infection with urinary retention Received Rocephin 1gm IV QD Urine Cx: E. Coli Blood Cx: No growth after 3 days With episode of urinary retention yesterday 01/02 but today able to void freely Continue to monitor 3. [place] Toxicity resolved [place] discontinued 4.HTN on Lisinopril 10 mg PO DAILY 5. Anxiety/Depression psych consulted Family does not know her psychiatric diagnosis for which she was taking [place] and Pristique [place] and Prist[place] discontinued Started Seroquel 50 mg pO BID and improving Continue taper Clonazepam to d/c (0.5 mg PO BID PRN) Lorazepam (0.5 mg PO DAILY) Will need to follow up with neurologist and psychiatrist as out patient 6. Prophylaxis Lovenox 40mg SC QD
[2018-01-04] MEDS: Levothyroxine 75 MCG TAB PO SCH (05:42)
[2018-01-04] MEDS: Enoxaparin 40 mg Syringe SC SCH ×2 (08:25→08:45)
--- NOTE | 2018-01-04 08:40 | CP.PCM.CON ---
History of Present Illness - History of Present Illness History of Present Illness: Psychiatry consult follow-up note Board Attendant spoke with patient's daughter, Angelica Dietz [phone]. We discussed that the patient should not restart Silver Peak at this time because she became Silver Peak toxic on a low dose of lithium. We also discussed that patient should be tapered off benzos as they can increase her risk of falls and increase risk of confusion. Daughter stated that her mother is improved from her initial hospitalization, but she is concerned that her mother continues to have periods of anxiety. She reports that her mother has a history of depression/anxiety and possibly bipolar disorder, although her mother never told her if she ever had that diagnosis. We discussed increasing the Seroquel to 50 mg PO BIDHS for continued mood stabilization. Board Attendant saw patient who continues to have chronic memory deficits. She denied acute depression/anxiety. She just expressed a desire to speak to her daughter and know when she will be leaving the hospital. Impression: 77 yo female w/ improved mental status from initial psychiatric evaluation, but patient continues to have memory deficits due to chronic dementia. Patient has a history of primary mood disorder (MDD vs Bipolar Disorder). Recommendations: -Do not restart Silver Peak -Increase Seroquel to 50 mg PO BIDHS -Taper Benzos -Case discussed w/ patient's daughter, Angelica Dietz Past Patient History - Past Medical History & Family History Past Medical History?: Yes - Past Social History Smoking Status: Never Smoked - CARDIAC Hx Cardiac Disorders: Yes Hx Hypercholesterolemia: Yes Hx Hypertension: Yes - PULMONARY Hx Respiratory Disorders: No - NEUROLOGICAL Hx Neurological Disorder: Yes Hx Alzheimer's Disease: Yes Hx Dementia: Yes - HEENT Hx HEENT Problems: Yes Other/Comment: Wears eyeglasses - RENAL Hx Chronic Kidney Disease: No - ENDOCRINE/METABOLIC Hx Endocrine Disorders: Yes Hx Hypothyroidism: Yes - HEMATOLOGICAL/ONCOLOGICAL Hx AIDS: No Hx Human Immunodeficiency Virus (HIV): No - INTEGUMENTARY Hx Dermatological Problems: No - MUSCULOSKELETAL/RHEUMATOLOGICAL Hx Falls: Yes - GASTROINTESTINAL Hx Gastrointestinal Disorders: No - GENITOURINARY/GYNECOLOGICAL Hx Genitourinary Disorders: Yes Hx Incontinence: Yes - PSYCHIATRIC Hx Substance Use: No - SURGICAL HISTORY Hx Surgeries: Yes Hx Cholecystectomy: Yes - ANESTHESIA Hx Anesthesia: Yes Hx Anesthesia Reactions: No Meds Allergies/Adverse Reactions: Allergies Allergy/AdvReac Type Severity Reaction Status Date / Time cortisone Allergy RASH Verified 12/29/17 14:03 Penicillins Allergy RASH Verified 12/29/17 14:03 - Medications Medications: Current Medications Acetaminophen (Tylenol 325mg Tab) 650 mg PO Q6 PRN PRN Reason: Pain, Mild (1-3) Last Admin: 01/03/18 21:46 Dose: 650 mg Clonazepam (Klonopin) 0.5 mg PO BID PRN PRN Reason: Anxiety Last Admin: 01/02/18 18:01 Dose: 0.5 mg Docusate Sodium (Colace) 100 mg PO BID [facility] Last Admin: 01/04/18 08:26 Dose: 100 mg Enoxaparin Sodium (Lovenox) 40 mg SC DAILY [facility]; Protocol Last Admin: 01/04/18 08:25 Dose: 40 mg Lactulose (Enulose) 20 gm PO DAILY PRN PRN Reason: Constipation Levothyroxine Sodium (Synthroid) 75 mcg PO DAILY@0630 [facility] Last Admin: 01/04/18 05:42 Dose: 75 mcg Lisinopril (Zestril) 10 mg PO DAILY [facility] Last Admin: 01/04/18 08:25 Dose: 10 mg [facility] Results - Vital Signs Recent Vital Signs: Last Vital Signs Temp 97.9 F 01/03/18 19:25 Pulse 60 01/04/18 08:25 Resp 20 01/03/18 19:25 BP 139/69 01/04/18 08:25 Pulse Ox 95 01/03/18 19:25
[2018-01-04 11:27] VITALS: O2SAT 98
[2018-01-04 20:34] VITALS: RESP 20; TEMP 97.2
[2018-01-05] MEDS: Levothyroxine 75 MCG TAB PO SCH (06:03)
[2018-01-05 07:49] VITALS: BP 125/67; PULSE 68
[2018-01-05] MEDS: Enoxaparin 40 mg Syringe SC SCH (08:46)
--- NOTE | 2018-01-05 11:26 | CP.PCM.DIS ---
Provider - Provider Date of Admission: 12/29/17 14:07 Attending physician: Miguel Garber MD Consults: Psychiatry, Dr. Saxena Time Spent in preparation of Discharge (in minutes): 35 Diagnosis - Discharge Diagnosis (1) UTI (urinary tract infection) Status: Acute Hospital Course - Lab Results Lab Results: Micro Results 01/01/18 12:40 Urine,Clean Catch Urine Culture - Final No Growth (<1,000 CFU/ML) Most Recent Lab Values Urine Color Yellow (YELLOW) 01/01/18 12:40 Urine Clarity Slighty-cloudy (Clear) 01/01/18 12:40 Urine pH 7.0 (5.0-8.0) 01/01/18 12:40 Ur Specific [place] 1.008 (1.003-1.030) 01/01/18 12:40 Urine Protein Negative mg/dL (NEGATIVE) 01/01/18 12:40 Urine Glucose (UA) Neg mg/dL (Normal) 01/01/18 12:40 Urine Ketones Negative mg/dL (NEGATIVE) 01/01/18 12:40 Urine Blood Negative (NEGATIVE) 01/01/18 12:40 Urine Nitrate Negative (NEGATIVE) 01/01/18 12:40 Urine Bilirubin Negative (NEGATIVE) 01/01/18 12:40 Urine Urobilinogen 0.2-1.0 mg/dL (0.2-1.0) 01/01/18 12:40 Ur Leukocyte Esterase Mod Kar/uL (Negative) 01/01/18 12:40 Urine RBC (Auto) 4 /hpf (0-3) H 01/01/18 12:40 Urine Microscopic WBC 23 /hpf (0-5) H 01/01/18 12:40 Ur Squamous Epith Cells < 1 /hpf (0-5) 01/01/18 12:40 Ur Renal Epithelial Cell 6 /hpf (0-3) H 01/01/18 12:40 Urine Bacteria Rare (<OCC) 01/01/18 12:40 Hyaline Casts 3-5 /hpf (0-2) H 01/01/18 12:40 - Hospital Course Hospital Course: 77 y/o female PMHx of HTN, Hypothyroid, anxiety/depression, RA, Hep C and dementia was admitted for altered mental status and UTI. Pt was transferred to TCU for PT and continuation of IV antibiotics. Psychiatry was consulted for management of depression. Patient's urinary retention resolved, completed course of ABX. AMS also improved, was likely secondary to UTI, lithium tox, hx of dementia. Per psych recommendations, patient will be discharged on Seroquel 50 mg BID only. Benzo discontinued. CT head was negative. Pt stable for discharge home. NAD, HD stable. Discharge Exam - Head Exam Head Exam: ATRAUMATIC, NORMAL INSPECTION, NORMOCEPHALIC - Eye Exam Eye Exam: EOMI, Normal appearance - ENT Exam ENT Exam: Mucous Membranes Moist, Normal Oropharynx - Respiratory Exam Respiratory Exam: Clear to PA & Lateral, NORMAL BREATHING PATTERN - Cardiovascular Exam Cardiovascular Exam: RRR, +S1, +S2 - GI/Abdominal Exam GI & Abdominal Exam: Normal Bowel Sounds, Soft - Extremities Exam Extremities exam: normal capillary refill, pedal pulses present - Back Exam Back exam: absent: CVA tenderness (L), CVA tenderness (R) - Neurological Exam Neurological exam: Alert, Reflexes Normal - Psychiatric Exam Psychiatric exam: Normal Affect, Normal Mood - Skin Skin Exam: Dry, Warm Discharge Plan - Discharge Medications Prescriptions: Acetaminophen [Tylenol 325mg tab] 650 mg PO Q6 PRN #30 tab PRN Reason: Pain, Mild (1-3) clonazePAM [Klonopin] 0.5 mg PO BID #60 tab Levothyroxine [Synthroid] 75 mcg PO DAILY #30 tab Lisinopril [Zestril] 10 mg PO DAILY #30 tab QUEtiapine [SEROquel] 50 mg PO BID #60 tab - Follow Up Plan Condition: GOOD Disposition: HOME/ ROUTINE Additional Instructions: Follow up PCP in one week.
[2018-01-05] MEDS ORDERED: Influenza Vaccine (5 YR UP)/PF 60 MCG/0.5 ML SYR IM ONE (11:45)
== END 2018-01-05 13:15 | disposition home or self-care (01) | DRG 690 ==
LOC: H.TCU 14:07
PROC: F08Z3FZ Feeding/Eating Treatment using Assistive, Adaptive, Supportive or Protective Equipment (ICD-10-PCS; principal; 2017-12-29)
PROC: F08Z2FZ Grooming/Personal Hygiene Treatment using Assistive, Adaptive, Supportive or Protective Equipment (ICD-10-PCS; 2017-12-29)
PROC: F08Z1FZ Dressing Techniques Treatment using Assistive, Adaptive, Supportive or Protective Equipment (ICD-10-PCS; 2017-12-29)
PROC: F07Z9FZ Gait Training/Functional Ambulation Treatment using Assistive, Adaptive, Supportive or Protective Equipment (ICD-10-PCS; 2017-12-29)
PROC: F07L6GZ Therapeutic Exercise Treatment of Musculoskeletal System - Lower Back / Lower Extremity using Aerobic Endurance and Conditioning Equipment (ICD-10-PCS; 2017-12-29)
PROC: 3E02340 Introduction of Influenza Vaccine into Muscle, Percutaneous Approach (ICD-10-PCS; 2018-01-05)
DX: N39.0 Urinary tract infection, site not specified (principal); B96.20 Unspecified Escherichia coli [E. coli] as the cause of diseases classified elsewhere; I10 Essential (primary) hypertension; F32.9 Major depressive disorder, single episode, unspecified; F41.9 Anxiety disorder, unspecified; G30.9 Alzheimer's disease, unspecified; F02.80 Dementia in other diseases classified elsewhere, unspecified severity, without behavioral disturbance, psychotic disturbance, mood disturbance, and anxiety; Z88.0 Allergy status to penicillin; Z23 Encounter for immunization; E03.9 Hypothyroidism, unspecified; E78.00 Pure hypercholesterolemia, unspecified; B19.20 Unspecified viral hepatitis C without hepatic coma; M06.9 Rheumatoid arthritis, unspecified

== ENCOUNTER 2018-02-07 10:33 | Observation (INO) | payer MEDICARE, OTHER ==
[2018-02-07 10:43] VITALS: BMI 36.0
[2018-02-07 12:50] LABS: BASO % 0.6 % (0.0-2.0); EOS # 0.1 K/uL (0.0-0.7); HEMOGLOBIN 11.9 g/dL (12.0-16.0); LYMPH # 1.3 K/uL (1.0-4.3); LYMPH % 28.1 % (20.0-40.0); MEAN CELL VOLUME 89.4 fl (81.0-99.0); MEAN CORPUSCULAR HEMOGLOBIN 29.1 pg (27.0-31.0); MEAN CORPUSCULAR HGB CONC 32.5 g/dL (33.0-37.0); MEAN PLATELET VOLUME 7.7 fl (7.2-11.7); MONO # 0.4 K/uL (0.0-0.8); NEUT # 2.6 K/uL (1.8-7.0); NEUT % 59.3 % (50.0-75.0); NRBC % 0.2 % (0.0-0.0); RBC 4.11 Mil/uL (3.80-5.20); RED CELL DISTRIBUTION WIDTH 14.2 % (11.5-14.5); WHITE BLOOD COUNT 4.5 K/uL (4.8-10.8)
--- NOTE | 2018-02-07 13:13 | ED PDOC ---
HPI: Female Pain Time Seen by Provider: 02/07/18 10:40 Chief Complaint (Nursing): Female Genitourinary Chief Complaint (Provider): Female Genitourinary History Per: Family (Son and daughter phone number: [phone]) History/Exam Limitations: clinical condition Onset/Duration Of Symptoms: Days Current Symptoms Are (Timing): Still Present Additional Complaint(s): Matt Faulkner is 77 year old female with a past medical history of UTI, Hypertension, depression, anxiety, Hepatitis C and hypothyroidism, who presents to the emergency department complaining of urine retention. Patient is cared for by a home nurse who noticed leg swelling on the patient, advising her to get it seen by a doctor. She was seen by her PMD who put her on a water pill and referr ed her to a bean snipper, who put her on another water pill. Patient was seen by a anesthesiologist assistant certified who took her off the water pills and drained urine from her via straight cath and a "lot of urine came out". Patient was seen her x3 months ago and admitted into the "therapy" room. Patient was seen to be agitated and needs to be calmed down. PMD: Dr. Davidson Past Medical History Reviewed: Historical Data, Nursing Documentation, Vital Signs Vital Signs: Last Vital Signs Temp 97 F L 02/07/18 11:19 Pulse 79 02/07/18 11:19 Resp 18 02/07/18 11:19 BP 127/72 02/07/18 11:19 Pulse Ox 96 02/07/18 11:19 - Medical History PMH: Alzheimer's Disease, Anxiety, Arthritis, Dementia, Depression, Hepatitis (C), HTN, Hypercholesterolemia, Hypothyroidism, Rheumatoid Arthritis Denies: HIV, Chronic Kidney Disease Other PMH: neuropathy of the feet, short term memory loss - Surgical History Surgical History: Cholecystectomy - Family History Family History: States: Unknown Family Hx - Social History Current smoker - smoking cessation education provided: No Alcohol: None Drugs: Denies - Home Medications Home Medications: Ambulatory Orders Medication Instructions Recorded Calcium Carb,Gluc/Mag Ox,Gluc 1 tab PO DAILY 02/07/18 [Calcium Magnesium Caplet] Clonazepam [Klonopin] 1 mg PO Q12 02/07/18 Diclofenac Sodium [Voltaren] 1 appl TOP Q8 PRN 02/07/18 Levothyroxine [Synthroid] 75 mcg PO DAILY 02/07/18 Melatonin/Pyridoxine HCl (B6) 3 mg PO HS 02/07/18 [Melatonin 3 mg Tablet] QUEtiapine [SEROquel] 100 mg PO HS 02/07/18 amLODIPine [Norvasc] 5 mg PO DAILY #30 tab 02/08/18 - Allergies Allergies/Adverse Reactions: Allergies Allergy/AdvReac Type Severity Reaction Status Date / Time cortisone Allergy RASH Verified 12/29/17 14:03 Penicillins Allergy RASH Verified 12/29/17 14:03 Review of Systems ROS Statement: Except As Marked, All Systems Reviewed And Found Negative Genitourinary Female: Positive for: Incontinence Psych: Positive for: Other (agitated ). Negative for: Psychosis, Suicidal ideation Physical Exam - Reviewed Nursing Documentation Reviewed: Yes Vital Signs Reviewed: Yes - Physical Exam Appears: Positive for: Non-toxic, No Acute Distress Head Exam: Positive for: ATRAUMATIC, NORMOCEPHALIC Skin: Positive for: Normal Color, Warm, Dry Eye Exam: Positive for: Normal appearance, EOMI, PERRL ENT: Positive for: Normal ENT Inspection Neck: Positive for: Normal, Painless ROM, Supple Cardiovascular/Chest: Positive for: Regular Rate, Rhythm. Negative for: Murmur Respiratory: Positive for: Normal Breath Sounds. Negative for: Respiratory Distress Gastrointestinal/Abdominal: Positive for: Normal Exam, Soft. Negative for: Tenderness Back: Positive for: Normal Inspection. Negative for: L CVA Tenderness, R CVA Tenderness, Vertebral Tenderness Extremity: Positive for: Normal ROM. Negative for: Pedal Edema, Deformity Neurologic/Psych: Positive for: Alert, Oriented. Negative for: Motor/Sensory Deficits - Laboratory Results Result Diagrams: 02/08/18 05:15 02/08/18 05:15 - ECG O2 Sat by Pulse Oximetry: 96 (RA) Pulse Ox Interpretation: Normal Medical Decision Making Medical Decision Making: Time: 11:56 Plan: intermittant urinary retention/agitation intermittant for months rule out UTI, electrolyate abnorma;lity --CMP --Crisis evaluation --Cbc with differential --Urine culture --Urinalysis --Urinary catheter insertion 15:29 --Patient is able to produce urine normally, (-) retention. Labs reviewed: potassium at 5.8. and borderling uti noted. Cipro IV and Kayexalate additionally ordered for UTI and elevated potassium. Patient will be admitted to hospitalist for further treatment with plans for psych eval once she transfer. 17:20 --Dr. Kramer made aware of case. --Dr Campbell accepte critical access hospital case --psych team aware that pt will need inpatient consult w Dr Saxena. who had seen pt last time. currently pt not suicidal or homicidal. --answered questions to patient, and son and daughter all at the bedside and supplemented the history Scribe Attestation: Documented by Gurvinder Gannon, acting as a scribe for Reny Cadet MD. Provider Scribe Attestation: All medical record entries made by the Scribe were at my direction and personally dictated by me. I have reviewed the chart and agree that the record accurately reflects my personal performance of the history, physical exam, medical decision making, and the department course for this patient. I have also personally directed, reviewed, and agree with the discharge instructions and disposition. Disposition - Clinical Impression Clinical Impression: Agitation, UTI (urinary tract infection), Hyperkalemia - Patient ED Disposition Is Patient to be Admitted: Yes Counseled Patient/Family Regarding: Studies Performed, Diagnosis - Disposition Disposition Time: 17:00 Condition: FAIR
[2018-02-07 13:18] LABS: URINE BILIRUBIN NEGATIVE (NEGATIVE); URINE BLOOD NEGATIVE (NEGATIVE); URINE CLARITY CLEAR (Clear); URINE COLOR STRAW (YELLOW); URINE GLUCOSE (UA) NEG (Normal); URINE LEUKOCYTE ESTERASE TRACE Leu/uL (Negative); URINE PROTEIN NEGATIVE (NEGATIVE); URINE UROBILINOGEN 0.2-1.0 mg/dL (0.2-1.0)
[2018-02-07 13:32] LABS: SQUAMOUS EPITHIAL < 1 /hpf (0-5)
[2018-02-07 14:25] LABS: ALBUMIN 4.5 g/dL (3.5-5.0); CALCIUM 10.2 mg/dL (8.4-10.2)
[2018-02-07] MEDS ORDERED: Ciprofloxacin 400mg/200ml D5W 400 MG/200 ML BAG IVPB STA (15:29)
[2018-02-07] MEDS ORDERED: Ciprofloxacin 400mg/200ml D5W 400 MG/200 ML BAG IVPB ONE (15:40)
[2018-02-07] MEDS ORDERED: Sod Polystyrene Sulf 15 gm/60 ml Susp PO ONE (15:51)
[2018-02-07] MEDS ORDERED: Sodium Chloride 0.9% 1,000 ML IV STA (16:04)
--- NOTE | 2018-02-07 17:24 | CP.PCM.HP ---
History of Present Illness - History of Present Illness History of Present Illness: This 77 yo f with extensive PMH was brought by her family due to patient increase agitation, and confusion and patient is complaining of burning on urination. Family state for past 3 week after she being dc from hospital with Dc of lithium due to high level in blood. Pt became more hyper, and agitated. During this week patient became more agitated, and confused. They believe its due to patient is not taking adequate psychiatric medication, as she was discontinued her lithium and Seroquel was just increased without any other new m edication. Family also state had urine retention. patient was put on water pill by her PMH and disaster recovery coordinator but she saw her Software Configuration Manager couple of days ago and had a direct Burt cath and told her to stop the water pill as this increase retention. Otherwise patient had no complain, she denies fever, chills, headache, chest pain, abdominal pain, diarrhea, constipation. *water pills is : lasix and ,Maxzide ROS: limited secondary to pts cognitive status, as per HPI. PMD: [place] PMHx: Hep C, HTN, dementia, hypothyroid, anxiety/depression Meds: as per med rec, confirmed ALL: NKDA PsurgHx: cholecystectomy Social: no hx of tobacco, drug abuse, etoh. lives at home with , no babbitt spinner Family Hx: denies In Ed Vitals WNL UA: WBC 6H, otherwise WNL CBC/CMP unremarkable except K 5.8H and BUN of 56 possible due to dehydration Physical exam: tenderness upon palpation of the pelvis, otherwise wnl Pt will admitted to to evaluate for UTI and Psych evaluation. Present on Admission - Present on Admission Any Indicators Present on Admission: No Review of Systems - Review of Systems All systems: reviewed and no additional remarkable complaints except Past Patient History - Past Medical History & Family History Past Medical History?: Yes - Past Social History Smoking Status: Never Smoked - CARDIAC Hx Hypercholesterolemia: Yes Hx Hypertension: Yes - PULMONARY Hx Respiratory Disorders: No - NEUROLOGICAL Hx Alzheimer's Disease: Yes Hx Dementia: Yes - HEENT Hx HEENT Problems: Yes Other/Comment: Wears eyeglasses - RENAL Hx Chronic Kidney Disease: No - ENDOCRINE/METABOLIC Hx Hypothyroidism: Yes - HEMATOLOGICAL/ONCOLOGICAL Hx Human Immunodeficiency Virus (HIV): No - INTEGUMENTARY Hx Dermatological Problems: No - MUSCULOSKELETAL/RHEUMATOLOGICAL Hx Arthritis: Yes Hx Rheumatoid Arthritis: Yes - GASTROINTESTINAL Hx Gastrointestinal Disorders: No - GENITOURINARY/GYNECOLOGICAL Hx Genitourinary Disorders: Yes Hx Incontinence: Yes - PSYCHIATRIC Hx Anxiety: Yes Hx Depression: Yes - SURGICAL HISTORY Hx Cholecystectomy: Yes - ANESTHESIA Hx Anesthesia: Yes Hx Anesthesia Reactions: No Meds Allergies/Adverse Reactions: Allergies Allergy/AdvReac Type Severity Reaction Status Date / Time cortisone Allergy RASH Verified 12/29/17 14:03 Penicillins Allergy RASH Verified 12/29/17 14:03 Physical Exam - Constitutional Appears: Well, Non-toxic, No Acute Distress - Head Exam Head Exam: ATRAUMATIC, NORMAL INSPECTION, NORMOCEPHALIC - Eye Exam Eye Exam: EOMI, Normal appearance, PERRL Pupil Exam: NORMAL ACCOMODATION, PERRL - ENT Exam ENT Exam: Mucous Membranes Moist, Normal Exam - Neck Exam Neck exam: Positive for: Normal Inspection - Respiratory Exam Respiratory Exam: Clear to Auscultation Bilateral, NORMAL BREATHING PATTERN - Cardiovascular Exam Cardiovascular Exam: REGULAR RHYTHM, +S1, +S2 - GI/Abdominal Exam GI & Abdominal Exam: Normal Bowel Sounds, Soft Additional comments: Mild tenderness upon palpating of pelvic area - Extremities Exam Extremities exam: Positive for: normal inspection - Back Exam Back exam: NORMAL INSPECTION. absent: CVA tenderness (L), CVA tenderness (R) - Neurological Exam Neurological exam: Alert, CN II-XII Intact, Oriented x3 - Psychiatric Exam Psychiatric exam: Normal Affect, Normal Mood - Skin Skin Exam: Dry, Intact, Normal Color, Warm Results - Vital Signs Recent Vital Signs: Last Vital Signs Temp 98 F 02/07/18 17:10 Pulse 80 02/07/18 17:10 Resp 18 02/07/18 17:10 BP 140/86 02/07/18 17:10 Pulse Ox 99 02/07/18 17:10 - Labs Result Diagrams: 02/07/18 12:40 02/07/18 14:00 Labs: Laboratory Results - last 24 hr 02/07/18 02/07/18 02/07/18 12:40 12:55 14:00 WBC 4.5 L RBC 4.11 Hgb 11.9 L Hct 36.7 MCV 89.4 MCH 29.1 MCHC 32.5 L RDW 14.2 Plt Count 249 MPV 7.7 Neut % (Auto) 59.3 Lymph % (Auto) 28.1 [place] % (Auto) 9.0 Eos % (Auto) 3.0 Baso % (Auto) 0.6 Neut # (Auto) 2.6 Lymph # (Auto) 1.3 [place] # (Auto) 0.4 Eos # (Auto) 0.1 Baso # (Auto) 0.0 Sodium 133 Potassium 5.8 H Chloride 97 L Carbon Dioxide 24 Anion Gap 18 BUN 56 H Creatinine 1.1 Est GFR ( Amer) 58 Est GFR (Non-Af Amer) 48 Random Glucose 114 H Calcium 10.2 Total Bilirubin 0.6 AST 30 ALT 40 Alkaline Phosphatase 75 Total Protein 8.9 H Albumin 4.5 Globulin 4.3 H Albumin/Globulin Ratio 1.0 Urine Color Straw Urine Clarity Clear Urine pH 6.0 Ur Specific [place] 1.008 Urine Protein Negative Urine Glucose (UA) Neg Urine Ketones Negative Urine Blood Negative Urine Nitrate Negative Urine Bilirubin Negative Urine Urobilinogen 0.2-1.0 Ur Leukocyte Esterase Trace Urine RBC (Auto) 1 Urine Microscopic WBC 6 H Ur Squamous Epith Cells < 1 Assessment & Plan - Assessment and Plan (Free Text) Assessment: 77 y/o female with PMHx of HTN, Hypothyroid, anxiety/depression, RA, Hep C and dementia admitted for altered mental status and UTI. Plan: UTI: -afebrile -no leukocytosis -S/P Cipro 400mg in ER -f/u blood/urine cx -IVF bolus 1L -repeat AM labs Altered Mental Status -Possibly to UTI -UA: 6 wbc, other wnl -CBC: WNL -CMP: unremarkable -Urine Cx: pending -blood culture: pending -F/U psych consult and crisis evaluation Hyperkalemia Possible due to dehydration -Potassium 5.8 -S/P 1 bolus IV fluid -s/p kayexalate -F/U BMP AM HTN -stable -c/w lisinopril 10mg QD -monitor Anxiety/Depression -resume home meds -psych consult Prophylaxis -Lovenox 40mg SC QD Diet -heart healthy/pureed Code Status -full code
[2018-02-07] MEDS ORDERED: SODIUM POLYSTYRENE SULFONATE 15 GM POWDER PO ONE (17:41)
[2018-02-07] MEDS ORDERED: Albuterol 0.083% Inhal Sol (2.5 mg/3 mL) UD IH PRN (17:51)
[2018-02-07] MEDS ORDERED: Menthol/Methyl Salicylate Oinment TOP PRN (17:51)
[2018-02-07] MEDS: Ciprofloxacin 400mg/200ml D5W 400 MG/200 ML BAG IVPB SCH (23:03)
[2018-02-08 06:27] LABS: MEAN CELL VOLUME 88.6 fl (81.0-99.0); MEAN CORPUSCULAR HEMOGLOBIN 29.2 pg (27.0-31.0); MEAN CORPUSCULAR HGB CONC 32.9 g/dL (33.0-37.0); RBC 3.76 Mil/uL (3.80-5.20); RED CELL DISTRIBUTION WIDTH 14.2 % (11.5-14.5); WHITE BLOOD COUNT 4.1 K/uL (4.8-10.8)
[2018-02-08 06:30] LABS: BLOOD UREA NITROGEN 45 mg/dl (7-17); CALCIUM 9.4 mg/dL (8.4-10.2); GFR NON-AFRICAN AMERICAN > 60
[2018-02-08 07:48] VITALS: BP 113/58; PULSE 71; RESP 19; TEMP 98.5
--- NOTE | 2018-02-08 08:02 | CP.PCM.CON ---
History of Present Illness - History of Present Illness History of Present Illness: Psychiatry consult note; Patient previously evaluated by pattern chart writer on 12/30/17 and 01/04/18 CC: "Im good (Sto bene) HPI: 77 y/o female with a PMHx of dementia, Hep C, HTN, hypothyroidism, mood disorder, admitted w/ AMS in the context of acute UTI. Patient currently calm, pleasant, A + O x self and hospital, not date. She reports her mood as good. Denies feeling acutely depressed or anxious. Denies AH/VH/SI/HI. PMD: Stuart PMHx: Hep C, HTN, dementia, hypothyroidism, Mood Disorder ALL: PCN, Cortisone PsurgHx: cholecystectomy Social: No drugs/etoh/cig use. Lives w/ . From [place]. MSE: A + O x [facility] and [facility]), good eye contact, speaks Faroese and Moldovan, speech normal volume; thought process- coherent, loose at times; denies AH/VH/SI/HI; poor I/J due to chronic dementia Impression: 77 yo female w/ h/o dementia and mood disorder, presented w/ AMS in the context of active UTI, now on IV antibiotics. AMS likely secondary to acute infection, in addition to chronic dementia. Recommendations: -Recommend that primary team taper Klonopin daily and stop Klonopin as this may worsen mental status and increase risk of falls -Recommend outpatient psychiatric follow-up upon discharge -Recommend to stop Seroquel in case it is worsening urinary retention; if family agreeable, would recommend to start Risperdal 0.5 mg PO Daily@1700 and titrate up to 0.5 mg PO BID if necessary Past Patient History - Past Medical History & Family History Past Medical History?: Yes - Past Social History Smoking Status: Never Smoked - CARDIAC Hx Cardiac Disorders: Yes Hx Hypercholesterolemia: Yes Hx Hypertension: Yes - PULMONARY Hx Respiratory Disorders: No - NEUROLOGICAL Hx Alzheimer's Disease: Yes Hx Dementia: Yes - HEENT Hx HEENT Problems: Yes Other/Comment: Wears eyeglasses - RENAL Hx Chronic Kidney Disease: No - ENDOCRINE/METABOLIC Hx Hypothyroidism: Yes - HEMATOLOGICAL/ONCOLOGICAL Hx Human Immunodeficiency Virus (HIV): No - INTEGUMENTARY Hx Dermatological Problems: No - MUSCULOSKELETAL/RHEUMATOLOGICAL Hx Arthritis: Yes Hx Falls: No Hx Rheumatoid Arthritis: Yes Hx Unsteady Gait: Yes - GASTROINTESTINAL Hx Gastrointestinal Disorders: No Hx Gall Bladder Disease: Yes - GENITOURINARY/GYNECOLOGICAL Hx Genitourinary Disorders: Yes Hx Incontinence: Yes - PSYCHIATRIC Hx Anxiety: Yes Hx Depression: Yes Hx Substance Use: No - SURGICAL HISTORY Hx Cholecystectomy: Yes - ANESTHESIA Hx Anesthesia: Yes Hx Anesthesia Reactions: No Hx Malignant Hyperthermia: No Has any member of the family had a problem w/ anesthesia?: No Meds Allergies/Adverse Reactions: Allergies Allergy/AdvReac Type Severity Reaction Status Date / Time cortisone Allergy RASH Verified 12/29/17 14:03 Penicillins Allergy RASH Verified 12/29/17 14:03 - Medications Medications: Current Medications Acetaminophen (Tylenol 325mg Tab) 325 mg PO HS [facility] Last Admin: 02/07/18 22:47 Dose: 325 mg Albuterol Sulfate (Albuterol 0.083% Inhal Hailey (2.5 Mg/3 Ml) Ud) 2.5 mg IH Q6 PRN PRN Reason: Shortness of Breath Calcium Carbonate (Oscal) 500 mg PO DAILY [facility] Camphor/Menthol (Bengay) 1 applic TOP Q8 PRN PRN Reason: Pain, moderate (4-7) Clonazepam (Klonopin) 1 mg PO Q12 [facility] Last Admin: 02/07/18 22:47 Dose: 1 mg Enoxaparin Sodium (Lovenox) 40 mg SC DAILY [facility]; Protocol Ciprofloxacin (Cipro 400mg/200ml Dsw) 400 mg in 200 mls @ 200 mls/hr IVPB Q12 [facility]; Protocol Last Admin: 02/07/18 23:03 Dose: 200 mls/hr Levothyroxine Sodium (Synthroid) 75 mcg PO DAILY [facility] Lisinopril (Zestril) 10 mg PO DAILY [facility] Magnesium Oxide (Mag-Ox) 400 mg PO DAILY [facility] Quetiapine Fumarate (Seroquel) 50 mg PO DAILY [facility] Results - Vital Signs Recent Vital Signs: Last Vital Signs Temp 98.5 F 02/08/18 07:48 Pulse 71 02/08/18 07:48 Resp 19 02/08/18 07:48 BP 113/58 L 02/08/18 07:48 Pulse Ox 98 02/08/18 07:48 - Labs Result Diagrams: 02/08/18 05:15 02/08/18 05:15 Labs: Laboratory Results - last 24 hr 02/07/18 02/07/18 02/07/18 12:40 12:55 14:00 WBC 4.5 L RBC 4.11 Hgb 11.9 L Hct 36.7 MCV 89.4 MCH 29.1 MCHC 32.5 L RDW 14.2 Plt Count 249 MPV 7.7 Neut % (Auto) 59.3 Lymph % (Auto) 28.1 [place] % (Auto) 9.0 Eos % (Auto) 3.0 Baso % (Auto) 0.6 Neut # (Auto) 2.6 Lymph # (Auto) 1.3 [place] # (Auto) 0.4 Eos # (Auto) 0.1 Baso # (Auto) 0.0 Sodium 133 Potassium 5.8 H Chloride 97 L Carbon Dioxide 24 Anion Gap 18 BUN 56 H Creatinine 1.1 Est GFR ( Amer) 58 Est GFR (Non-Af Amer) 48 Random Glucose 114 H Calcium 10.2 Total Bilirubin 0.6 AST 30 ALT 40 Alkaline Phosphatase 75 Total Protein 8.9 H Albumin 4.5 Globulin 4.3 H Albumin/Globulin Ratio 1.0 Urine Color Straw Urine Clarity Clear Urine pH 6.0 Ur Specific [place] 1.008 Urine Protein Negative Urine Glucose (UA) Neg Urine Ketones Negative Urine Blood Negative Urine Nitrate Negative Urine Bilirubin Negative Urine Urobilinogen 0.2-1.0 Ur Leukocyte Esterase Trace Urine RBC (Auto) 1 Urine Microscopic WBC 6 H Ur Squamous Epith Cells < 1 02/08/18 02/08/18 05:15 05:15 WBC 4.1 L RBC 3.76 L Hgb 11.0 L Hct 33.3 L MCV 88.6 MCH 29.2 MCHC 32.9 L RDW 14.2 Plt Count 235 MPV Neut % (Auto) Lymph % (Auto) [place] % (Auto) Eos % (Auto) Baso % (Auto) Neut # (Auto) Lymph # (Auto) [place] # (Auto) Eos # (Auto) Baso # (Auto) Sodium 135 Potassium 5.4 H Chloride 107 Carbon Dioxide 23 Anion Gap 10 BUN 45 H Creatinine 0.8 Est GFR ( Amer) > 60 Est GFR (Non-Af Amer) > 60 Random Glucose 100 Calcium 9.4 Total Bilirubin AST ALT Alkaline Phosphatase Total Protein Albumin Globulin Albumin/Globulin Ratio Urine Color Urine Clarity Urine pH Ur Specific [place] Urine Protein Urine Glucose (UA) Urine Ketones Urine Blood Urine Nitrate Urine Bilirubin Urine Urobilinogen Ur Leukocyte Esterase Urine RBC (Auto) Urine Microscopic WBC Ur Squamous Epith Cells
[2018-02-08] MEDS ORDERED: MAG OX GLUC PO SCH (09:00)
[2018-02-08] MEDS ORDERED: Levothyroxine 75 MCG TAB PO SCH (09:00)
[2018-02-08] MEDS ORDERED: Magnesium Oxide 400 mg Tab UD PO SCH (09:00)
[2018-02-08] MEDS ORDERED: Enoxaparin 40 mg Syringe SC SCH (09:00)
[2018-02-08] MEDS ORDERED: CALCIUM CARB GLUC PO SCH (09:00)
[2018-02-08] MEDS ORDERED: Sod Polystyrene Sulf 15 gm/60 ml Susp PO ONE (09:06)
[2018-02-08] MEDS: Ciprofloxacin 400mg/200ml D5W 400 MG/200 ML BAG IVPB SCH (11:00)
--- NOTE | 2018-02-08 11:02 | CARD ---
APPROVED REPORT Date of service: 02/07/2018 EKG Measurement Heart [id number] <Conclusion> Sinus rhythm with marked sinus arrhythmia Left axis deviation Abnormal ECG
--- NOTE | 2018-02-08 12:50 | CP.PCM.DIS ---
Provider - Provider Date of Admission: 02/07/18 15:59 Attending physician: Kinsey Campbell MD Time Spent in preparation of Discharge (in minutes): 20 Diagnosis - Discharge Diagnosis (1) Agitation Status: Acute (2) Depression Status: Chronic (3) Pseudodementia Status: Chronic (4) Bipolar 1 disorder Status: Chronic Hospital Course - Lab Results Lab Results: Micro Results 02/07/18 12:55 Urine,Clean Catch Urine Culture - Final No Growth (<1,000 CFU/ML) Most Recent Lab Values WBC 4.1 K/uL (4.8-10.8) L 02/08/18 05:15 RBC 3.76 Mil/uL (3.80-5.20) L 02/08/18 05:15 Hgb 11.0 g/dL (12.0-16.0) L 02/08/18 05:15 Hct 33.3 % (34.0-47.0) L 02/08/18 05:15 MCV 88.6 fl (81.0-99.0) 02/08/18 05:15 MCH 29.2 pg (27.0-31.0) 02/08/18 05:15 MCHC 32.9 g/dL (33.0-37.0) L 02/08/18 05:15 RDW 14.2 % (11.5-14.5) 02/08/18 05:15 Plt Count 235 K/uL (130-400) 02/08/18 05:15 MPV 7.7 fl (7.2-11.7) 02/07/18 12:40 Neut % (Auto) 59.3 % (50.0-75.0) 02/07/18 12:40 Lymph % (Auto) 28.1 % (20.0-40.0) 02/07/18 12:40 [place] % (Auto) 9.0 % (0.0-10.0) 02/07/18 12:40 Eos % (Auto) 3.0 % (0.0-4.0) 02/07/18 12:40 Baso % (Auto) 0.6 % (0.0-2.0) 02/07/18 12:40 Neut # (Auto) 2.6 K/uL (1.8-7.0) 02/07/18 12:40 Lymph # (Auto) 1.3 K/uL (1.0-4.3) 02/07/18 12:40 [place] # (Auto) 0.4 K/uL (0.0-0.8) 02/07/18 12:40 Eos # (Auto) 0.1 K/uL (0.0-0.7) 02/07/18 12:40 Baso # (Auto) 0.0 K/uL (0.0-0.2) 02/07/18 12:40 Sodium 135 mmol/l (132-148) 02/08/18 05:15 Potassium 5.4 MMOL/L (3.6-5.0) H 02/08/18 05:15 Chloride 107 mmol/L (98-107) 02/08/18 05:15 Carbon Dioxide 23 mmol/L (22-30) 02/08/18 05:15 Anion Gap 10 (10-20) 02/08/18 05:15 BUN 45 mg/dl (7-17) H 02/08/18 05:15 Creatinine 0.8 mg/dl (0.7-1.2) 02/08/18 05:15 Est GFR ( Amer) > 60 02/08/18 05:15 Est GFR (Non-Af Amer) > 60 02/08/18 05:15 Random Glucose 100 mg/dL (65-105) 02/08/18 05:15 Calcium 9.4 mg/dL (8.4-10.2) 02/08/18 05:15 Total Bilirubin 0.6 mg/dl (0.2-1.3) 02/07/18 14:00 AST 30 U/L (14-36) 02/07/18 14:00 ALT 40 U/L (9-52) 02/07/18 14:00 Alkaline Phosphatase 75 U/L (38-126) 02/07/18 14:00 Total Protein 8.9 G/DL (6.3-8.2) H 02/07/18 14:00 Albumin 4.5 g/dL (3.5-5.0) 02/07/18 14:00 Globulin 4.3 gm/dL (2.2-3.9) H 02/07/18 14:00 Albumin/Globulin Ratio 1.0 (1.0-2.1) 02/07/18 14:00 Urine Color Straw (YELLOW) 02/07/18 12:55 Urine Clarity Clear (Clear) 02/07/18 12:55 Urine pH 6.0 (5.0-8.0) 02/07/18 12:55 Ur Specific [place] 1.008 (1.003-1.030) 02/07/18 12:55 Urine Protein Negative mg/dL (NEGATIVE) 02/07/18 12:55 Urine Glucose (UA) Neg mg/dL (Normal) 02/07/18 12:55 Urine Ketones Negative mg/dL (NEGATIVE) 02/07/18 12:55 Urine Blood Negative (NEGATIVE) 02/07/18 12:55 Urine Nitrate Negative (NEGATIVE) 02/07/18 12:55 Urine Bilirubin Negative (NEGATIVE) 02/07/18 12:55 Urine Urobilinogen 0.2-1.0 mg/dL (0.2-1.0) 02/07/18 12:55 Ur Leukocyte Esterase Trace Kar/uL (Negative) 02/07/18 12:55 Urine RBC (Auto) 1 /hpf (0-3) 02/07/18 12:55 Urine Microscopic WBC 6 /hpf (0-5) H 02/07/18 12:55 Ur Squamous Epith Cells < 1 /hpf (0-5) 02/07/18 12:55 - Hospital Course Hospital Course: This 77 yo f with extensive PMH was brought by her family due to patient increase agitation, and confusion and patient is complaining of burning on urination. Pt was admitted to floor to be evaluated and treated with UTI. Pt was put on Cipro 400mg, received 2 dose. Today morning Patient vitals, CBC and UA was WNL, and UTI was ruled out Cipro was Dc. Pt was evaluated by psych, state patient agitation most likely psychiatric disorder and can be managed by her outpatient psychiatrist. Spoke with family, family agree patient need to follow up with Psych as outpatient. During patient stay, Patient have received her home medication, she was treated for Hyperkalemia, and UTI was R/O Patient will be discharged to home, should follow up with Psych as outpatient no more than 1 week. Pt should see primary care doctor in 1-2 days. Discharge Exam - Head Exam Head Exam: ATRAUMATIC, NORMAL INSPECTION, NORMOCEPHALIC - Eye Exam Eye Exam: EOMI, Normal appearance, PERRL Pupil Exam: NORMAL ACCOMODATION, PERRL - Respiratory Exam Respiratory Exam: Clear to PA & Lateral, NORMAL BREATHING PATTERN, UNREMARKABLE - Cardiovascular Exam Cardiovascular Exam: REGULAR RHYTHM, +S1, +S2 - GI/Abdominal Exam GI & Abdominal Exam: Normal Bowel Sounds, Unremarkable - Back Exam Back exam: NORMAL INSPECTION - Skin Skin Exam: Dry, Intact, Normal Color, Warm Discharge Plan - Follow Up Plan Condition: FAIR Disposition: HOME/ ROUTINE Instructions: Dependent Edema (DC), Urinary Retention (DC) Additional Instructions: follow up mental health clinic and your primary MD 1 week Referrals: [facility] [Outside] Schuyler Guerra MD [Staff Provider] - Shefali Saxena MD [Medical Doctor] -
[2018-02-08 18:22] VITALS: O2SAT 96
== END 2018-02-08 16:42 | disposition home or self-care (01) ==
LOC: H.ER 10:33 → INTOOBSV 15:59 → H.ERHOLD 15:59 → H.MEDSURG1 18:15
PROVIDERS: ADMIT Hospitalist; ATTEND Hospitalist
DX: G30.9 Alzheimer's disease, unspecified (principal); M06.9 Rheumatoid arthritis, unspecified; Z88.0 Allergy status to penicillin; I10 Essential (primary) hypertension; E03.9 Hypothyroidism, unspecified; E78.00 Pure hypercholesterolemia, unspecified; G62.9 Polyneuropathy, unspecified; B19.20 Unspecified viral hepatitis C without hepatic coma; E66.9 Obesity, unspecified; Z68.36 Body mass index [BMI] 36.0-36.9, adult; E87.5 Hyperkalemia; F41.9 Anxiety disorder, unspecified; F02.81 Dementia in other diseases classified elsewhere, unspecified severity, with behavioral disturbance; F31.9 Bipolar disorder, unspecified
CPT/HCPCS: 36415; 80048; 80053; 81003; 85025; 85027; 87040; 87086; 93005; 96360; 96365; 99285; G0378; J0744; J1650; J7030

== ENCOUNTER 2018-06-04 22:20 | Observation (INO) | payer MEDICARE, OTHER ==
[2018-06-04 22:26] VITALS: BMI 32.5
[2018-06-04 23:17] LABS: ALT/SGPT 41 U/L (9-52); AST/SGOT 35 U/L (14-36); BLOOD UREA NITROGEN 30 mg/dl (7-17); CALCIUM 9.6 mg/dL (8.4-10.2); GFR NON-AFRICAN AMERICAN > 60
--- NOTE | 2018-06-04 23:24 | ED PDOC ---
HPI: Altered Mental Status Time Seen by Provider: 06/04/18 22:36 Chief Complaint (Nursing): Psychiatric Evaluation Chief Complaint (Provider): AMS History Per: Patient, Family (daughter, ) Associated Symptoms: denies: Fever, Vomiting, Falling Additional Complaint(s): 77 y/o female with history of dementia and depression was brought to the ED by daughter, son-in-law, and for AMS. Family reports that for the last few days patient's mental status has been decompensating. Patient thinks that her is leaving her and she has been destroying clothes as well as pulling things off closets and shelves and is generally very angry and aggressive. Family denies any fever, fall, or vomiting. Patient has had previous hospitalization for both depression and for UTI that led to exacerbations. Patient admits to increased urinations with pain on urination. Patient's family reports patient is compliant with medications and follow up appointment. Past Medical History Reviewed: Historical Data, Nursing Documentation, Vital Signs Vital Signs: Last Vital Signs Temp 98.4 F 06/04/18 22:25 Pulse 84 06/04/18 22:25 Resp 16 06/04/18 22:25 BP 146/72 06/04/18 22:25 Pulse Ox 97 06/04/18 22:25 - Medical History PMH: Alzheimer's Disease, Anxiety, Arthritis, Dementia, Depression, Gall Bladder Disease, Hepatitis (C), HTN, Hypercholesterolemia, Hypothyroidism, Rheumatoid Arthritis Denies: HIV, Chronic Kidney Disease - Surgical History Surgical History: Cholecystectomy - Family History Family History: States: Unknown Family Hx - Home Medications Home Medications: Ambulatory Orders Medication Instructions Recorded Clonazepam [Klonopin] 1 mg PO TID 02/07/18 Levothyroxine [Synthroid] 75 mcg PO DAILY 02/07/18 QUEtiapine [SEROquel] 100 mg PO HS 02/07/18 Desvenlafaxine Succinate [Pristiq] 50 mg PO DAILY 06/04/18 Lisinopril [Zestril] 10 mg PO BID 06/04/18 Quetiapine Fumarate [Seroquel] 50 mg PO DAILY 06/04/18 - Allergies Allergies/Adverse Reactions: Allergies Allergy/AdvReac Type Severity Reaction Status Date / Time cortisone Allergy RASH Verified 06/04/18 22:23 Penicillins Allergy RASH Verified 06/04/18 22:23 Review of Systems ROS Statement: Except As Marked, All Systems Reviewed And Found Negative Constitutional: Negative for: Fever Gastrointestinal: Negative for: Vomiting Genitourinary Female: Positive for: Dysuria, Frequency Neurological: Positive for: Altered Mental Status Physical Exam - Reviewed Nursing Documentation Reviewed: Yes Vital Signs Reviewed: Yes - Physical Exam Appears: Positive for: Well, Non-toxic, No Acute Distress Head Exam: Positive for: ATRAUMATIC, NORMAL INSPECTION, NORMOCEPHALIC Skin: Positive for: Normal Color, Warm, DRY Eye Exam: Positive for: EOMI, Normal appearance, PERRL ENT: Positive for: Normal ENT Inspection Neck: Positive for: Normal, Painless ROM Cardiovascular/Chest: Positive for: Regular Rate, Rhythm. Negative for: Murmur Respiratory: Positive for: Normal Breath Sounds. Negative for: Respiratory Distress Pulses-Dorsalis Pedis (L): 2+ Pulses-Dorsalis Pedis (R): 2+ Gastrointestinal/Abdominal: Positive for: Tenderness (mild suprapubic) Back: Positive for: Normal Inspection. Negative for: L CVA Tenderness, R CVA Tenderness, Vertebral Tenderness Extremity: Positive for: Normal ROM. Negative for: Pedal Edema, Deformity, Sw elling Neurological/Psych: Positive for: Awake, Alert, Normal Tone, Oriented (x1 - patient is unable to state year or her age/children's ages but is able to provide address and her own Date of ), Cerebellar Tests (normal), review specialist II- XII (intact). Negative for: Motor/Sensory Deficits - Laboratory Results Result Diagrams: 06/04/18 23:00 06/04/18 23:00 Lab Results: Total Bilirubin 0.2 mg/dl (0.2-1.3) 06/04/18 23:00 AST 35 U/L (14-36) 06/04/18 23:00 ALT 41 U/L (9-52) 06/04/18 23:00 Alkaline Phosphatase 82 U/L (38-126) 06/04/18 23:00 Total Protein 8.1 G/DL (6.3-8.2) 06/04/18 23:00 Albumin 4.0 g/dL (3.5-5.0) 06/04/18 23:00 Globulin 4.0 gm/dL (2.2-3.9) H 06/04/18 23:00 Albumin/Globulin Ratio 1.0 (1.0-2.1) 06/04/18 23:00 - ECG O2 Sat by Pulse Oximetry: 97 (RA) Pulse Ox Interpretation: Normal Medical Decision Making Medical Decision Making: Time: 22:37 MDM: Work up for AMS/worsening dementia with aggression * Labs with cultures and UA * CT Head * Will give Haldol as patient is refusing IV and medical work up. and daughter agree with current treatment plan. 00:00 Will get crisis consultation for possible geropsych placement. Patient care endorsed to Dr. Díaz pending urine and brain CT. Scribe Attestation: Documented by Bruno Jaramillo, acting as a scribe Deedee Yepez MD Provider Scribe Attestation: All medical record entries made by the Scribe were at my direction and personally dictated by me. I have reviewed the chart and agree that the record accurately reflects my personal performance of the history, physical exam, medical decision making, and the department course for this patient. I have also personally directed, reviewed, and agree with the discharge instructions and disposition. Disposition - Clinical Impression Clinical Impression: Pseudodementia, Agitation - Disposition Disposition: Transfer of Care Disposition Time: 00:00 Condition: GUARDED Forms: Therio (Setswana) Patient Signed Over To: Kiran Díaz
[2018-06-04 23:28] LABS: BASO % 0.4 % (0.0-2.0); EOS # 0.1 K/uL (0.0-0.7); EOS % 2.9 % (0.0-4.0); HEMOGLOBIN 11.1 g/dL (12.0-16.0); LYMPH # 1.3 K/uL (1.0-4.3); LYMPH % 27.2 % (20.0-40.0); MEAN CELL VOLUME 85.9 fl (81.0-99.0); MEAN CORPUSCULAR HEMOGLOBIN 29.1 pg (27.0-31.0); MEAN CORPUSCULAR HGB CONC 33.8 g/dL (33.0-37.0); MEAN PLATELET VOLUME 7.2 fl (7.2-11.7); MONO # 0.5 K/uL (0.0-0.8); MONO % 9.6 % (0.0-10.0); NEUT % 59.9 % (50.0-75.0); RBC 3.83 Mil/uL (3.80-5.20); RED CELL DISTRIBUTION WIDTH 14.4 % (11.5-14.5); WHITE BLOOD COUNT 4.9 K/uL (4.8-10.8)
[2018-06-04 23:29] LABS: B-TYPE NATRIURETIC PEPTIDE 81.4 pg/ml (0-900)
[2018-06-04] MEDS ORDERED: Sodium Chloride 0.9% 1,000 ML IV STA (23:42)
--- NOTE | 2018-06-05 00:08 | ED PDOC ---
- Laboratory Results Result Diagrams: 06/04/18 23:00 06/04/18 23:00 Lab Results: Troponin I < 0.0120 ng/mL (0.00-0.120) 06/04/18 23:00 NT-Pro-B Natriuret Pep 81.4 pg/ml (0-900) 06/04/18 23:00 Total Bilirubin 0.2 mg/dl (0.2-1.3) 06/04/18 23:00 AST 35 U/L (14-36) 06/04/18 23:00 ALT 41 U/L (9-52) 06/04/18 23:00 Alkaline Phosphatase 82 U/L (38-126) 06/04/18 23:00 Total Protein 8.1 G/DL (6.3-8.2) 06/04/18 23:00 Albumin 4.0 g/dL (3.5-5.0) 06/04/18 23:00 Globulin 4.0 gm/dL (2.2-3.9) H 06/04/18 23:00 Albumin/Globulin Ratio 1.0 (1.0-2.1) 06/04/18 23:00 - ECG O2 Sat by Pulse Oximetry: 97 (RA) Pulse Ox Interpretation: Normal Medical Decision Making Medical Decision Making: Time: 00:00 Patient care endorsed from Dr. Yepez to provider pending crisis consultation, CT, and urine. 01:57 Urine is normal. Crisis evaluated patient and said that she is unwilling sign herself at present time. Patient will be admitted medically for AMS and dementia. Patient's case referred to family practice service covering Dr. Davidson. 02:28 CT Head COMMENTS: There is normal configuration of sella turcica. There are no intra or extra- axial collections. There is no mass effect or midline shift. There is no evidence of hematoma formation. No hydrocephalus is present. The ventricles are symmetrical. No abnormal calcifications are present. There is diffuse age-appropriate cerebellar and cerebral atrophy with proportionally dilated ventricles and cortical sulci. There are bilateral periventricular and subcortical white matter hypolucencies compatible with mild chronic microvascular disease. Otherwise, no significant focal abnormalities are seen either in the posterior fossa or supratentorial compartment. There is a jessica cisterna magna. IMPRESSION: 1. Age-appropriate cerebellar and cerebral atrophy. 2. Mild chronic microvascular disease. 3. No evidence of acute intracranial pathology. Scribe Attestation: Documented by Bruno Jaramillo, acting as a scribe Kristyn Díaz MD Provider Scribe Attestation: All medical record entries made by the Scribe were at my direction and personally dictated by me. I have reviewed the chart and agree that the record a ccurately reflects my personal performance of the history, physical exam, medical decision making, and the department course for this patient. I have also personally directed, reviewed, and agree with the discharge instructions and disposition Disposition - Clinical Impression Clinical Impression: Agitation, Dementia - POA Present On Arrival: None - Disposition Disposition: Admitted as In-Patient Disposition Time: 01:57 Condition: FAIR
[2018-06-05 00:59] LABS: URINE BILIRUBIN NEGATIVE (NEGATIVE); URINE BLOOD NEGATIVE (NEGATIVE); URINE CLARITY CLEAR (Clear); URINE COLOR YELLOW (YELLOW); URINE GLUCOSE (UA) NEG (NEGATIVE); URINE LEUKOCYTE ESTERASE NEG Leu/uL (Negative); URINE PROTEIN NEGATIVE (NEGATIVE); URINE UROBILINOGEN 0.2-1.0 mg/dL (0.2-1.0)
--- NOTE | 2018-06-05 02:20 | CP.PCM.HP ---
<BraggHardeep - Last Filed: 06/05/18 05:06> History of Present Illness - History of Present Illness History of Present Illness: 77 y/o F with PMHx of dementia with behavioral problems, anxiety/depression, HTN, hypothyroidism brought to ED by daughter and for AMS. As per patient's mental stats has been decompansating. Patient states that her is leaving her alone and going to [place]. Patient fears that her will leave her forever. Per daughter patient is aggressive at home. Both patient and are always in verbal fight. She has been destroying closets, cloths and putting her stuff in the suitcases. Family denies any fall, fever, chills or vomiting. Patient denies any headache, dizziness, CP, SOB, abdominal pain, dysuria, urinary symptoms, back pain, N/V/D/C. Patient walks with a walker due to H/O arthritis. Patient has had previous hospitalization for both depression and for UTI. Patient's family reports patient is compliant with medications and follow up appointment. PMD: Dr. Guerra PMHx: Hepatitis C, HTN, Hypothyroidism, anxiety, depression(H/O 13 ECT in past) PSHx: Cholesystectomy Allergies: Cortisone, Penicillins Social: no hx of tobacco, drug abuse, etoh. 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 ED Course Vitals WNL UA: WNL, CBC WNL, CMP : BUN 30, Gluc 139 unremarkable otherwise. Physical exam: Limited cognitive status, otherwise wnl Medications: Halodol x 1, Ativan x [address]: Awaiting official read Crisis eval: Not candidate for geropsych Present on Admission - Present on Admission Any Indicators Present on Admission: No History of DVT/PE: No History of Uncontrolled Diabetes: No Urinary Catheter: No Decubitus Ulcer Present: No Review of Systems - Review of Systems Systems not reviewed;Unavailable: Dementia, Altered Mental Status - Constitutional Constitutional: Frequent Falls - EENT Eyes: absent: Change in Vision - Cardiovascular Cardiovascular: Leg Edema. absent: Chest Pain, Chest Pain at Rest, Dyspnea, Dyspnea on Exertion, Palpitations - Respiratory Respiratory: absent: Cough, Dyspnea, Dyspnea on Exertion - Gastrointestinal Gastrointestinal: absent: Abdominal Pain, Constipation, Diarrhea, Nausea, Vomiting - Genitourinary Genitourinary: absent: Change in Urinary Stream, Difficulty Urinating, Dysuria - Musculoskeletal Musculoskeletal: absent: Back Pain - Neurological Neurological: Behavioral Changes - Psychiatric Psychiatric: Anxiety, Behavioral Changes, Mood Swings. absent: Suicidal Ideat ion, Visual Hallucinations, Tactile Hallucinations Past Patient History - Past Medical History & Family History Past Medical History?: Yes - Past Social History Smoking Status: Never Smoked - CARDIAC Hx Hypercholesterolemia: Yes Hx Hypertension: Yes - PULMONARY Hx Respiratory Disorders: No - NEUROLOGICAL Hx Alzheimer's Disease: Yes Hx Dementia: Yes - HEENT Hx HEENT Problems: Yes Other/Comment: Wears eyeglasses - RENAL Hx Chronic Kidney Disease: No - ENDOCRINE/METABOLIC Hx Hypothyroidism: Yes - HEMATOLOGICAL/ONCOLOGICAL Hx Human Immunodeficiency Virus (HIV): No - INTEGUMENTARY Hx Dermatological Problems: No - MUSCULOSKELETAL/RHEUMATOLOGICAL Hx Arthritis: Yes Hx Rheumatoid Arthritis: Yes - GASTROINTESTINAL Hx Gall Bladder Disease: Yes - GENITOURINARY/GYNECOLOGICAL Hx Genitourinary Disorders: Yes Hx Incontinence: Yes - PSYCHIATRIC Hx Anxiety: Yes Hx Depression: Yes - SURGICAL HISTORY Hx Cholecystectomy: Yes - ANESTHESIA Hx Anesthesia: Yes Hx Anesthesia Reactions: No Hx Malignant Hyperthermia: No Meds Allergies/Adverse Reactions: Allergies Allergy/AdvReac Type Severity Reaction Status Date / Time cortisone Allergy RASH Verified 06/04/18 22:23 Penicillins Allergy RASH Verified 06/04/18 22:23 Physical Exam - Constitutional Appears: No Acute Distress - Head Exam Head Exam: ATRAUMATIC, NORMAL INSPECTION, NORMOCEPHALIC - Eye Exam Eye Exam: EOMI, Normal appearance Pupil Exam: NORMAL ACCOMODATION, PERRL - ENT Exam ENT Exam: Mucous Membranes Moist, Normal Exam - Neck Exam Neck exam: Positive for: Normal Inspection - Respiratory Exam Respiratory Exam: Clear to Auscultation Bilateral, NORMAL BREATHING PATTERN. absent: Wheezes, Respiratory Distress - Cardiovascular Exam Cardiovascular Exam: REGULAR RHYTHM, +S1, +S2. absent: Systolic Murmur - GI/Abdominal Exam GI & Abdominal Exam: Normal Bowel Sounds, Soft. absent: Tenderness - Extremities Exam Extremities exam: Positive for: pedal edema. Negative for: calf tenderness - Back Exam Back exam: absent: CVA tenderness (L), CVA tenderness (R) - Neurological Exam Neurological exam: Alert, CN II-XII Intact, Oriented x3 - Psychiatric Exam Psychiatric exam: Anxious, Depressed - Skin Skin Exam: Dry, Intact, Normal Color, Warm Results - Vital Signs Recent Vital Signs: Last Vital Signs Temp 98.4 F 06/04/18 22:25 Pulse 84 06/04/18 22:25 Resp 16 06/04/18 22:25 BP 146/72 06/04/18 22:25 Pulse Ox 97 06/05/18 02:20 - Labs Result Diagrams: 06/04/18 23:00 06/04/18 23:00 Labs: Laboratory Results - last 24 hr 06/04/18 06/04/18 06/05/18 23:00 23:00 00:50 WBC 4.9 RBC 3.83 Hgb 11.1 L Hct 32.9 L MCV 85.9 D MCH 29.1 MCHC 33.8 RDW 14.4 Plt Count 210 MPV 7.2 Neut % (Auto) 59.9 Lymph % (Auto) 27.2 [place] % (Auto) 9.6 Eos % (Auto) 2.9 Baso % (Auto) 0.4 Neut # (Auto) 3.0 Lymph # (Auto) 1.3 [place] # (Auto) 0.5 Eos # (Auto) 0.1 Baso # (Auto) 0.0 Sodium 136 Potassium 4.3 Chloride 103 Carbon Dioxide 22 Anion Gap 15 BUN 30 H Creatinine 0.6 L Est GFR ( Amer) > 60 Est GFR (Non-Af Amer) > 60 Random Glucose 139 H Calcium 9.6 Total Bilirubin 0.2 AST 35 ALT 41 Alkaline Phosphatase 82 Troponin I < 0.0120 NT-Pro-B Natriuret Pep 81.4 Total Protein 8.1 Albumin 4.0 Globulin 4.0 H Albumin/Globulin Ratio 1.0 Urine Color Yellow Urine Clarity Clear Urine pH 7.0 Ur Specific [place] 1.008 Urine Protein Negative Urine Glucose (UA) Neg Urine Ketones Negative Urine Blood Negative Urine Nitrate Negative Urine Bilirubin Negative Urine Urobilinogen 0.2-1.0 Ur Leukocyte Esterase Neg Urine RBC (Auto) < 1 Urine Microscopic WBC < 1 Assessment & Plan - Assessment and Plan (Free Text) Assessment: 77 y/o F with PMHx of dementia with behavioral problems, anxiety/depression, HTN, hypothyroidism brought to ED by daughter and for AMS. Admitted for evaluation of AMS. Plan: AMS - Likely secondary to dementia vs depression with behavior changes vs fall injury - Head CT: Unremarkable for intracranial hemorrhage - CBC, CMP, UA unremarkable - S/p Halodol x 1 and Ativan x 2, IVF in ED for agitation - Crisis eval: not candidate for sara psych - Psychiatry consulted, recs appreciated - F/U CXR results and official head CT report Depression/anxiety - Resume Seroquel 100 PO HS and 50 PO daily - Resume Desvenlafaxine - klonopin 1 mg PO TID - Psych consulted, recs appreciated Hypothyroidism - Resume Synthroid 75 mcg HTN - Lisinopril 10 BID DVT prophylaxis - SCDs Diet: Heart healthy <Sundeep New - Last Filed: 06/05/18 10:03> Results - Vital Signs Recent Vital Signs: Last Vital Signs Temp 97.5 F L 06/05/18 08:00 Pulse 68 06/05/18 09:33 Resp 18 06/05/18 08:00 BP 145/81 06/05/18 09:33 Pulse Ox 95 06/05/18 08:00 - Labs Result Diagrams: 06/04/18 23:00 06/04/18 23:00 Labs: Laboratory Results - last 24 hr 06/04/18 06/04/18 06/05/18 23:00 23:00 00:50 WBC 4.9 RBC 3.83 Hgb 11.1 L Hct 32.9 L MCV 85.9 D MCH 29.1 MCHC 33.8 RDW 14.4 Plt Count 210 MPV 7.2 Neut % (Auto) 59.9 Lymph % (Auto) 27.2 [place] % (Auto) 9.6 Eos % (Auto) 2.9 Baso % (Auto) 0.4 Neut # (Auto) 3.0 Lymph # (Auto) 1.3 [place] # (Auto) 0.5 Eos # (Auto) 0.1 Baso # (Auto) 0.0 Sodium 136 Potassium 4.3 Chloride 103 Carbon Dioxide 22 Anion Gap 15 BUN 30 H Creatinine 0.6 L Est GFR ( Amer) > 60 Est GFR (Non-Af Amer) > 60 Random Glucose 139 H Calcium 9.6 Total Bilirubin 0.2 AST 35 ALT 41 Alkaline Phosphatase 82 Troponin I < 0.0120 NT-Pro-B Natriuret Pep 81.4 Total Protein 8.1 Albumin 4.0 Globulin 4.0 H Albumin/Globulin Ratio 1.0 Urine Color Yellow Urine Clarity Clear Urine pH 7.0 Ur Specific [place] 1.008 Urine Protein Negative Urine Glucose (UA) Neg Urine Ketones Negative Urine Blood Negative Urine Nitrate Negative Urine Bilirubin Negative Urine Urobilinogen 0.2-1.0 Ur Leukocyte Esterase Neg Urine RBC (Auto) < 1 Urine Microscopic WBC < 1 Attending/Attestation - Attestation I have personally seen and examined this patient.: Yes I have fully participated in the care of the patient.: Yes I have reviewed all pertinent clinical information: Yes Notes (Text): 06/05/18 09:56 I saw examined and discussed this patient with Dr Bragg. I agree with the assessment and plan outlined, this is a 77 years old female with hx of Bipolar, Anxiety and Depression, came with angry aggressive behavior, examined by the crisis team who did not commit herto the psych unit. We will Observe this patient for a Psychiatric cons ultation, manage her dehydration, hypothyroidism, Altered mental status which is a worsening of her dementia and her anxiety with depression. Sundeep New MD
[2018-06-05] MEDS: Levothyroxine 75 MCG TAB PO SCH ×2 (05:44→05:47)
--- NOTE | 2018-06-05 08:45 | CARD ---
APPROVED REPORT Date of service: 06/05/2018 EKG Measurement Heart [id number] <Conclusion> Normal sinus rhythm Minimal voltage criteria for LVH, may be normal variant Borderline ECG
--- NOTE | 2018-06-05 11:31 | CP.PCM.PN ---
<Nicole Silva - Last Filed: 06/05/18 11:32> Subjective - Date & Time of Evaluation Date of Evaluation: 06/05/18 Time of Evaluation: 11:23 - Subjective Subjective: 77 y/o F with PMHx of dementia with behavioral problems, anxiety/depression, HTN, hypothyroidism brought to ED by daughter and for AMS. As per patient's mental stats has been decompansating. Patient is alert and awake. Patient oriented to place not time. Patient denies any acute overnight events, patient denies any headache, dizziness, CP, SOB, abdominal pain, dysuria, urinary symptoms, back pain, N/V/D/C. Patient walks with a walker due tat home. Patient has had previous hospitalization for both depression and for UTI. Objective - Vital Signs/Intake and Output Vital Signs (last 24 hours): Temp Pulse Resp BP Pulse Ox 97.5 F L 68 18 145/81 95 06/05/18 09:00 06/05/18 09:33 06/05/18 09:00 06/05/18 09:33 06/05/18 09:00 - Medications Medications: Current Medications Clonazepam (Klonopin) 1 mg PO TID [facility] Last Admin: 06/05/18 09:32 Dose: 1 mg Home Med (Desvenlafaxine Succinate [Pristiq]) 50 mg PO DAILY [facility] Levothyroxine Sodium (Synthroid) 75 mcg PO DAILY@0630 [facility] Last Admin: 06/05/18 05:47 Dose: Not Given Lisinopril (Zestril) 10 mg PO BID [facility] Last Admin: 06/05/18 09:33 Dose: 10 mg Quetiapine Fumarate (Seroquel) 50 mg PO DAILY [facility] Last Admin: 06/05/18 09:39 Dose: Not Given Quetiapine Fumarate (Seroquel) 100 mg PO HS [facility] Last Admin: 06/05/18 03:19 Dose: Not Given - Labs Labs: 06/04/18 23:00 06/04/18 23:00 - Constitutional Appears: Well, Non-toxic, No Acute Distress - Head Exam Head Exam: ATRAUMATIC, NORMOCEPHALIC - Eye Exam Eye Exam: Normal appearance - ENT Exam ENT Exam: Mucous Membranes Moist - Respiratory Exam Respiratory Exam: NORMAL BREATHING PATTERN - Cardiovascular Exam Cardiovascular Exam: REGULAR RHYTHM, +S1, +S2 - GI/Abdominal Exam GI & Abdominal Exam: Normal Bowel Sounds - Neurological Exam Neurological Exam: Alert, Awake - Psychiatric Exam Psychiatric exam: Normal Affect Assessment and Plan - Assessment and Plan (Free Text) Assessment: 77 y/o F with PMHx of dementia with behavioral problems, anxiety/depression, HTN, hypothyroidism brought to ED by daughter and for AMS. Admitted for evaluation of AMS. Plan: AMS - Likely secondary to dementia vs depression with behavior changes vs fall injury - Head CT: Unremarkable for intracranial hemorrhage - CBC, CMP, UA unremarkable - S/p Halodol x 1 and Ativan x 2, IVF in ED for agitation - Crisis eval: not candidate for sara psych - F/U CXR results and official head CT report - PT on board Depression/anxiety - Resume Seroquel 100 PO HS and 50 PO daily - Resume Desvenlafaxine - klonopin 1 mg PO TID - Psych consulted, recs appreciated Hypothyroidism - Resume Synthroid 75 mcg HTN - Lisinopril 10 BID DVT prophylaxis - SCDs Diet: Heart healthy <Luz Maria Jimenez - Last Filed: 06/05/18 17:41> Objective - Vital Signs/Intake and Output Vital Signs (last 24 hours): Temp Pulse Resp BP Pulse Ox 98.1 F 85 20 130/84 93 L 06/05/18 17:00 06/05/18 17:00 06/05/18 17:00 06/05/18 17:00 06/05/18 17:00 - Medications Medications: Current Medications Benztropine Mesylate (Cogentin) 0.5 mg PO HS [facility] Clonazepam (Klonopin) 0.5 mg PO TID [facility] Last Admin: 06/05/18 16:41 Dose: 0.5 mg Divalproex Sodium (Depakote Dr(*Bid*)) 250 mg PO TID [facility] Last Admin: 06/05/18 16:37 Dose: 250 mg Levothyroxine Sodium (Synthroid) 75 mcg PO DAILY@0630 [facility] Last Admin: 06/05/18 05:47 Dose: Not Given Risperidone (Risperdal Tab) 1 mg PO HS MARK Trazodone HCl (Desyrel) 50 mg PO HS PRN PRN Reason: Insomnia Venlafaxine HCl (Effexor Xr) 37.5 mg PO DAILY [facility] Last Admin: 06/05/18 16:36 Dose: 37.5 mg - Labs Labs: 06/04/18 23:00 06/04/18 23:00 Attending/Attestation - Attestation I have personally seen and examined this patient.: Yes I have fully participated in the care of the patient.: Yes I have reviewed all pertinent clinical information, including history, physical exam and plan: Yes Notes (Text): Major Neurocognitive Disorder with Behavioral Disturbance Bipolar Disorder Dehydration -Pt was seen by Psych and Dr Valdes rec Geropsych admission and starting, Effexor, Risperdal, Depakote, she also rec to decrease Klonopin and d/c Pristiq and Seroquel. - Labs normal, no signs of infection - pt refused admission to Psych , family refused Involuntary Psych admission to [facility] - had long discussion with pt's and daughter ( daughter has financial POA but not medical ) , they refused Psych admission and signed pt against medical advice . Explained that pt is Psychiatrically not stable and need to be monitored on new medications until stable however patient and family refused . Also refused to stay in the medical floor overnight for further monitoring. - new Psych meds Rx sent to [facility] pharmacy in [place] - accdg to pt's , pt has an appt with Dr Nas Sunshine ( Psychiatry) recommended by Dr Davidson 06/05/18 17:41
--- NOTE | 2018-06-05 11:34 | CT ---
Date of service: 06/05/2018 PROCEDURE: CT HEAD WITHOUT CONTRAST. HISTORY: AMS COMPARISON: Comparison is made to the previous study dated 12/25/2017 TECHNIQUE: Axial computed tomography images were obtained through the head/brain without intravenous contrast. Radiation dose: Total exam DLP = 888.88 mGy-cm. This CT exam was performed using one or more of the following dose reduction techniques: Automated exposure control, adjustment of the mA and/or kV according to patient size, and/or use of iterative reconstruction technique. FINDINGS: HEMORRHAGE: No intracranial hemorrhage. BRAIN: No mass effect or edema. No atrophy or chronic microvascular ischemic changes. VENTRICLES: Unremarkable. No hydrocephalus. CALVARIUM: Unremarkable. PARANASAL SINUSES: Mild mucosal thickening and small air-fluid level noted in the left sphenoid sinus. MASTOID AIR CELLS: Unremarkable as visualized. No inflammatory changes. OTHER FINDINGS: Again noted are symmetrical foci of basal ganglia dystrophic calcification. Also again noted is extra-axial cyst at the posterior midline aspect of the posterior fossa likely represent arachnoid cyst IMPRESSION: No evidence of acute intracranial hemorrhage intracranial collection mass effect or midline shift. No significant interval changes noted since the prior study. Preliminary report was submitted by [facility] Radiology contains concordant findings.
--- NOTE | 2018-06-05 13:53 | CP.PCM.CON ---
History of Present Illness - History of Present Illness History of Present Illness: pt is a 77 y/o F with previuous psychiatric diagnosis of bipolar disorder and dementia with behavioral problems, , HTN, hypothyroidism brought to ED by daughter and for AMS. most history obtained from and son by bedside as pt has been uncooperative As per patient's mental stats has been decompansating. Patient has been paranoid , states that her is leaving her alone and going to [place]. Patient fears that her will leave her forever. Per son patient is aggressive at home. Both patient and are always in verbal fight. She has been destroying closets, cloths and putting her stuff in the suitcases, he also reported that pt has very poor sleep with early insomnia on evaluation pt is angry irritable uncooperative, alert and awake oriented to person and place but with poor insight requesting to be discharged Past Patient History - Past Medical History & Family History Past Medical History?: Yes - Past Social History Smoking Status: Never Smoked - CARDIAC Hx Cardiac Disorders: No Hx Hypertension: No - PULMONARY Hx Tuberculosis: No - NEUROLOGICAL HX Cerebrovascular Accident: No Hx Seizures: No - HEENT Hx HEENT Problems: Yes Other/Comment: Wears eyeglasses - RENAL Hx Chronic Kidney Disease: No - ENDOCRINE/METABOLIC Hx Endocrine Disorders: Yes Hx Hypothyroidism: Yes - HEMATOLOGICAL/ONCOLOGICAL Hx Cancer: No Hx Human Immunodeficiency Virus (HIV): No - INTEGUMENTARY Hx Dermatological Problems: No - MUSCULOSKELETAL/RHEUMATOLOGICAL Hx Musculoskeletal Disorders: Yes Hx Arthritis: Yes Hx Falls: No Hx Rheumatoid Arthritis: Yes - GASTROINTESTINAL Hx Gastrointestinal Disorders: Yes Hx Gall Bladder Disease: Yes - GENITOURINARY/GYNECOLOGICAL Hx Sexually Transmitted Disorders: No - PSYCHIATRIC Hx Psychophysiologic Disorder: Yes Hx Anxiety: Yes Hx Depression: Yes Hx Substance Use: No - SURGICAL HISTORY Hx Surgeries: Yes Hx Cholecystectomy: Yes - ANESTHESIA Hx Anesthesia: Yes Hx Anesthesia Reactions: No Hx Malignant Hyperthermia: No Meds Allergies/Adverse Reactions: Allergies Allergy/AdvReac Type Severity Reaction Status Date / Time cortisone Allergy RASH Verified 06/04/18 22:23 Penicillins Allergy RASH Verified 06/04/18 22:23 - Medications Medications: Current Medications Clonazepam (Klonopin) 1 mg PO TID [facility] Last Admin: 06/05/18 13:31 Dose: 1 mg Home Med (Desvenlafaxine Succinate [Pristiq]) 50 mg PO DAILY [facility] Levothyroxine Sodium (Synthroid) 75 mcg PO DAILY@0630 [facility] Last Admin: 06/05/18 05:47 Dose: Not Given Quetiapine Fumarate (Seroquel) 50 mg PO DAILY [facility] Last Admin: 06/05/18 09:39 Dose: Not Given Quetiapine Fumarate (Seroquel) 100 mg PO [facility] Last Admin: 06/05/18 03:19 Dose: Not Given Results - Vital Signs Recent Vital Signs: Last Vital Signs Temp 97.7 F 06/05/18 12:00 Pulse 60 06/05/18 12:00 Resp 18 06/05/18 12:00 BP 133/82 06/05/18 12:00 Pulse Ox 94 L 06/05/18 12:00 - Labs Result Diagrams: 06/04/18 23:00 06/04/18 23:00 Labs: Laboratory Results - last 24 hr 06/04/18 06/04/18 06/05/18 23:00 23:00 00:50 WBC 4.9 RBC 3.83 Hgb 11.1 L Hct 32.9 L MCV 85.9 D MCH 29.1 MCHC 33.8 RDW 14.4 Plt Count 210 MPV 7.2 Neut % (Auto) 59.9 Lymph % (Auto) 27.2 [place] % (Auto) 9.6 Eos % (Auto) 2.9 Baso % (Auto) 0.4 Neut # (Auto) 3.0 Lymph # (Auto) 1.3 [place] # (Auto) 0.5 Eos # (Auto) 0.1 Baso # (Auto) 0.0 Sodium 136 Potassium 4.3 Chloride 103 Carbon Dioxide 22 Anion Gap 15 BUN 30 H Creatinine 0.6 L Est GFR ( Amer) > 60 Est GFR (Non-Af Amer) > 60 Random Glucose 139 H Calcium 9.6 Total Bilirubin 0.2 AST 35 ALT 41 Alkaline Phosphatase 82 Troponin I < 0.0120 NT-Pro-B Natriuret Pep 81.4 Total Protein 8.1 Albumin 4.0 Globulin 4.0 H Albumin/Globulin Ratio 1.0 Urine Color Yellow Urine Clarity Clear Urine pH 7.0 Ur Specific [place] 1.008 Urine Protein Negative Urine Glucose (UA) Neg Urine Ketones Negative Urine Blood Negative Urine Nitrate Negative Urine Bilirubin Negative Urine Urobilinogen 0.2-1.0 Ur Leukocyte Esterase Neg Urine RBC (Auto) < 1 Urine Microscopic WBC < 1 Assessment & Plan - Assessment and Plan (Free Text) Assessment: bipolar disorder major neurocognitive disorder with behavioral disturbances Plan: recommend starting depakote 250mg po tid / pt has been on litium prior but had lithium toxicity she currently needs a mood stabilizer pt on pristiq 50mg , recommend to change to effexor xr 37.5 mg daily as the dose of 50mg could make pt increaingly irritable pt on klonopin 1mg tid , recommend to downtitrate gradually and discontinue dis continue seroquel, start risperidone mtab 1mg qhs with cogentin 0.5mg qhs tazodone 50mg qhs prn for insomnia pt would benefit from admission to geriatric psychiatry upon medical clearance for medication stabilization
[2018-06-05] MEDS ORDERED: Venlafaxine 37.5 mg ER Cap PO SCH (14:00)
--- NOTE | 2018-06-05 16:01 | RAD ---
Date of service: 06/04/2018 HISTORY: possible admission COMPARISON: No prior. TECHNIQUE: 1 view obtained. FINDINGS: LUNGS: Mild pulmonary vascular congestion. PLEURA: No significant pleural effusion identified, no pneumothorax apparent. CARDIOVASCULAR: Foci of atherosclerotic calcification at the aortic knob noted. The cardiac silhouette is prominent in size. No pulmonary vascular congestion. OSSEOUS STRUCTURES: No significant abnormalities. VISUALIZED UPPER ABDOMEN: Normal. OTHER FINDINGS: None. IMPRESSION: Possible mild cardiomegaly and mild pulmonary vascular congestion.
[2018-06-05 16:08] VITALS: BP 130/84; PULSE 85; RESP 20; TEMP 98.1; O2SAT 93
[2018-06-05] MEDS ORDERED: Divalproex 250 mg DR(BID formulation) PO SCH (17:00)
== END 2018-06-05 18:15 | disposition left against medical advice (07) ==
LOC: H.ER 22:20 → H.ERHOLD 06-05 01:33 → H.TEL 06-05 04:05
PROVIDERS: ADMIT Internal Medicine; ATTEND Internal Medicine
DX: F31.9 Bipolar disorder, unspecified (principal); F01.51 Vascular dementia, unspecified severity, with behavioral disturbance; G30.9 Alzheimer's disease, unspecified; M06.9 Rheumatoid arthritis, unspecified; Z79.890 Hormone replacement therapy; E03.9 Hypothyroidism, unspecified; E78.00 Pure hypercholesterolemia, unspecified; E86.0 Dehydration; I10 Essential (primary) hypertension; F41.9 Anxiety disorder, unspecified; M19.90 Unspecified osteoarthritis, unspecified site; B19.20 Unspecified viral hepatitis C without hepatic coma; Z88.0 Allergy status to penicillin
CPT/HCPCS: 70450; 71045; 80053; 81003; 83880; 84484; 85025; 93005; 96361; 96372; 96374; 99284; G0378; J1630; J2060; J7030